=== PATIENT | female | born 1970 | race Caucasian/White ===

== ENCOUNTER 2019-06-28 17:47 | Emergency (ER) | payer BC, SELFPAY ==
--- NOTE | ~2019-06-28 | XR_ITS ---
EXAMINATION: XR abdomen/kub 1V EXAM DATE: 06/28/2019 20:28 INDICATION: Left UPJ 4 mm stone. TECHNIQUE: Frontal projection(s) of the abdomen for interpretation. Comparison is made to prior exami nation from 02/01/2010. FINDINGS: There is expected amount of colonic stool and gas. No small bowel dilation, nonobstructiv e bowel gas pattern. Can't identify the left UPJ stone seen on CT. There is no organomegaly suspec diamond. The bones are unremarkable. There is no free intraperitoneal air. The lung bases are clear. IMPRESSION: Cannot identify genitourinary calcification(s) seen on CT. Reviewed, dictated and finalized at location A.
--- NOTE | ~2019-06-28 | CT_ITS ---
EXAMINATION: CT abdomen pelvis wo con EXAM DATE: 06/28/2019 19:55 INDICATION: Left flank pain. TECHNIQUE: Spiral CT of the abdomen and pelvis was performed without contrast. Axial, coronal and sag ittal images were reviewed. The dose-length product (DLP) for this examination was 1366.73 mGy-cm. The exposure was tailored according to patient size (auto mA exposure control), and iterative reconst ruction (ASIR) was used as additional dose reduction technique. Comparison is made to prior examinati on from 10/27/2014. FINDINGS: There is a 4 mm stone in the left ureteropelvic junction, mild obstructive nephropathy. No other genitourinary calcifications. The uterus is unremarkable. The bladder is unremarkable. Ther e is a left adrenal gland adenoma measuring 1.3 cm unchanged. The right adrenal gland, spleen, pancre as are unremarkable. Hepatic steatosis present. Gallbladder is unremarkable. No biliary obstruction . There is no retroperitoneal or pelvic lymphadenopathy. The appendix is normal. The stomach and small bowel are unremarkable. There is expected amount of c olonic stool. No free intraperitoneal gas. The heart is normal in size. There are no pericardial or pleural effusions. The lung bases are unremarkable. There are no osteoblastic or osteolytic les ions identified. IMPRESSION: Left UPJ 4 mm stone, mild obstructive nephropathy. Urologist consultants would appreciate KUB as baseline for follow-up, treatment planning. Reviewed, dictated and finalized at location A. IMPRESSION: Left UPJ 4 mm stone, mild obstructive nephropathy. Urologist tracee tanjorge would appreciate KUB as baseline for follow-up, treatment planning.
[2019-06-28 18:19] VITALS: BP 155/99; PULSE 75; RESP 16; TEMP 36.3; O2SAT 96
[2019-06-28 18:30] LABS: Basophils Percent Auto 0.2 % (0.2-1.2); Eosinophils Absolute Auto 0.1 K/mm3 (0-0.3); Eosinophils Percent Auto 0.6 % (0-4.4); Hematocrit 42.9 % (37.0-47.0); Hemoglobin 13.9 g/dL (12.0-15.0); Immature Granulocyte Absolute 0.07 K/mm3 (0.00-0.031); Immature Granulocyte Percent A 0.4 % (0-0.5); Lymphocytes Absolute Auto 1.36 K/mm3 (0.9-3.2); Lymphocytes Percent Auto 8.4 % (18.3-44.2); Mean Corpuscular HGB Conc 32.4 g/dl (32-36); Mean Corpuscular Hemoglobin 28.5 pg (26-34); Mean Corpuscular Volume 88.1 fl (80-100); Mean Platelet Volume 10.2 fl (7.4-10.4); Monocytes Absolute Auto 1.1 K/mm3 (0.1-0.6); Monocytes Percent Auto 6.9 % (2.6-8.5); Neutrophils Absolute Auto 13.5 K/mm3 (1.3-6.7); Neutrophils Percent Auto 83.5 % (45.5-73.1); Platelet Count Result 318 k/mm3 (150-375); Red Blood Count 4.87 M/mm3 (4.2-5.4); Red Cell Distribution Width 14.2 % (11.5-14.5); White Blood Count 16.2 K/mm3 (4.5-10.0)
[2019-06-28 18:41] LABS: Blood Urea Nitrogen 16 mg/dL (7-17); Carbon Dioxide 26 mmol/L (22-30); Chloride 105 mmol/L (98-107); Estimated CRCL calculation 70 ml/min; Estimated Glomerular Filt Rate 53; Glucose 143 mg/dL (65-105); Potassium 3.8 mmol/L (3.4-5.0); Sodium 141 mmol/L (137-145)
[2019-06-28 18:56] LABS: Add Urine Microscopic? YES; Appearance Urine Cloudy (Clear); Bacteria Urine 2+ /hpf; Bilirubin Urine Negative (Negative); Blood Urine 3+ (Negative); Color Urine Yellow (Yellow); Glucose Urine UA Negative (Negative); Ketones Urine Negative (Negative); Leukocyte Esterase Ur Negative LEU/UL (Negative); Mucus Urine Rare /lpf; Nitrate Urine Negative (Negative); Protein Urine 2+ mg/dL (Negative); RBC Urine >75 /hpf (0-2); Specific Grav Ur 1.025 (1.001-1.035); Squamous Epithelial Cell Urine Many /hpf (Few); Urobilinogen Urine Negative mg/dL (<2.0)
[2019-06-28 19:19] VITALS: BP 168/95; PULSE 75; RESP 21; O2SAT 95
--- NOTE | 2019-06-28 19:25 | ED.BACK ---
HPI - Back Pain/Injury General Chief Complaint: Back Pain/Injury <Vania Stout PA-C - Last Filed: 06/28/19 21:26> Stated Complaint: L FLANK PAIN N/V <CARLITO Mejias Last Filed: 06/28/19 21:26> Time Seen by Provider: 06/28/19 19:19 <Vania Stout PA-C - Last Filed: 06/28/19 21:26> Source: patient <CARLITO Mejias Last Filed: 06/28/19 21:26> Mode of arrival: ambulatory <CARLITO Mejias Last Filed: 06/28/19 21:26> Limitations: no limitations <Vania Stout PA-C - Last Filed: 06/28/19 21:26> History of Present Illness HPI Narrative: This is a 48-year-old female that presents the emergency department for left flank pain since yesterday. Reports constant, sharp left flank pain. Associated with nausea and vomiting. Reports history of kidney stones. Denies fever, dysuria, hematuria. <Vania Stout PA-C - Last Filed: 06/28/19 21:26> Related Data Allergies/Adverse Reactions: Allergies Allergy/AdvReac Type Severity Reaction Status Date / Time No Known Allergies Allergy Verified 09/04/18 09:09 <Vania Stout PA-C - Last Filed: 06/28/19 21:26> Review of Systems Review of Systems: Narrative: CONSTITUTIONAL: Denies fever GASTROINTESTINAL: Reports abdominal pain, nausea, vomiting GENITOURINARY: Denies dysuria or hematuria. MUSCULOSKELETAL: Reports back pain <CARLITO Mejias Last Filed: 06/28/19 21:26> All systems reviewed & are unremarkable except as noted in HPI and below <Vania Stout PA-C - Last Filed: 06/28/19 21:26> PMFSH Past Medical History Medical History: Medical History (Updated 06/29/19 @ 00:00 by Background Daemon) History of anxiety History of hypertension History of migraine <CARLITO Mejias Last Filed: 03/10/20 21:26> Surgical History Surgical History: Surgical History (Updated 06/28/19 @ 19:30 by Vania Stout PA-C) History of appendectomy History of section History of tonsillectomy <Vania Stout PA-C - Last Filed: 06/28/19 21:26> Social History Social History: Social History Gender identity (if verbalized by the patient): Female <Vania Stout PA-C - Last Filed: 06/28/19 21:26> Exam Narrative: Exam Narrative: GENERAL: Well-appearing, obese, and in no acute distress. HEAD: Normocephalic, atraumatic. EYES: EOMI. CHEST: Clear to auscultation. No respiratory distress. No wheezes rales or rhonchi HEART: Regular rate and rhythm. No murmur heard. Normal peripheral pulses. ABDOMEN: Soft, nondistended, normal active bowel sounds. Mild tenderness to palpation of the LLQ, without guarding. Left sided CVA tenderness EXTREMITIES: Normal range of motion. No edema. SKIN: Warm, dry, no rash. NEURO: No focal deficits. Alert and oriented x3. PSYCH: Normal mood and affect <Vania Stout PA-C - Last Filed: 06/28/19 21:26> Course Vital Signs Vital signs: Vital Signs Temperature 36.3 C L 06/28/19 18:19 Pulse Rate 75 06/28/19 18:19 Respiratory Rate 16 06/28/19 18:19 Blood Pressure 155/99 H 06/28/19 18:19 Pulse Oximetry 96 06/28/19 18:19 Temperature 36.3 C L 06/28/19 18:19 Pulse Rate 78 06/28/19 20:45 Respiratory Rate 17 06/28/19 20:45 Blood Pressure 135/70 06/28/19 20:45 Pulse Oximetry 95 06/28/19 20:45 <Vania Stout PA-C - Last Filed: 06/28/19 21:26> Vital Signs Temperature 36.3 C L 06/28/19 18:19 Pulse Rate 75 06/28/19 18:19 Respiratory Rate 16 06/28/19 18:19 Blood Pressure 155/99 H 06/28/19 18:19 Pulse Oximetry 96 06/28/19 18:19 Temperature 36.3 C L 06/28/19 18:19 Pulse Rate 78 06/28/19 20:45 Respiratory Rate 17 06/28/19 20:45 Blood Pressure 135/70 06/28/19 20:45 Pulse Oximetry 95 06/28/19 20:45 <Candi Rivers MD - Last Filed: 06/29/19 00:46> MDM - Back Pain/Injury MDM Narrative Medical decision making narrative: Patient presents the emergency
[2019-06-28] MEDS: SODIUM CHLORIDE 0.9% IV 1,000 ML 999 ML IV CONT (19:40)
[2019-06-28] MEDS: ONDANSETRON INJ 4 MG/2 ML VIAL IV PUSH (19:40)
[2019-06-28] MEDS: MORPHINE SULFATE 4 MG/ML INJ IV PUSH (19:44)
[2019-06-28 20:45] VITALS: BP 135/70; PULSE 78; RESP 17; O2SAT 95
[2019-06-28] MEDS: KETOROLAC 30 MG/ML VIAL (*BKC) IV PUSH (21:00)
[2019-06-28] MEDS: PROMETHAZINE HCL 25 MG/ML AMPUL 12.5 MG IV PUSH (21:05)
== END 2019-06-28 21:55 | disposition home or self-care (01) ==
PROVIDERS: Emergency Provider Emergency Medicine; PCP Family Medicine
DX: N13.8 Other obstructive and reflux uropathy (principal); N20.1 Calculus of ureter; N39.0 Urinary tract infection, site not specified; I10 Essential (primary) hypertension; Z87.442 Personal history of urinary calculi
CPT/HCPCS: 36415; 74018; 74176; 80048; 81001; 81025; 85025; 87086; 96361; 96365; 96375; 99284; J0131; J0696; J1885; J2270; J2405; J2550; J7030

== ENCOUNTER 2019-06-30 10:51 | Day surgery (SDC) | payer BC, SELFPAY ==
[2019-06-30] VITALS (10 sets, daily range): BP systolic 100–186; BP diastolic 51–100; PULSE 68–81; RESP 14–21; TEMP 35.8–36.6; O2SAT 93–99
--- NOTE | ~2019-06-30 | XR_ITS ---
Pain management procedure TECHNIQUE: Fluoroscopy used during ureteral stone extraction performed by [Isaiah Sauceda MD ] on 06/30/2019. 13.7 seconds with 4 fluoroscopic images images captured. ] FINDINGS: Correlate with procedure note. IMPRESSION: Fluoroscopy used during ureteral stone extraction.. Reviewed, dictated and finalized at location A.
--- NOTE | ~2019-06-30 | XR_ITS ---
EXAMINATION: XR abdomen/kub 1V EXAM DATE: 06/30/2019 13:14 INDICATION: Left ureteral stone recheck. TECHNIQUE: Frontal projection of the upper abdomen, frontal projection lower abdomen/pelvis for inter pretation. There is no prior study for comparison. FINDINGS: Left UPJ stone likely identified, indicated. Nonobstructive bowel gas pattern. Mild bony d egenerative changes. IMPRESSION: Left UPJ stone likely identified. Reviewed, dictated and finalized at location B.
[2019-06-30] MEDS: HYDROMORPHONE HCL 1 MG/ML INJ 0.5 MG IV PUSH (12:39)
[2019-06-30] MEDS: SODIUM CHLORIDE 0.9% IV 1,000 ML 999 ML IV CONT (12:39)
[2019-06-30] MEDS: METOCLOPRAMIDE HCL INJ 10 MG/2 ML VIAL IV PUSH (12:39)
--- NOTE | 2019-06-30 13:09 | PC.NURSE ---
Patient in radiology at this time. Will request urine sample upon return to department.
--- NOTE | 2019-06-30 13:31 | ED.ABDPAIN ---
HPI - Abdominal Pain General Chief Complaint: Urogenital-Female Stated Complaint: flank pain/vomiting/kidney stone Time Seen by Provider: 06/30/19 11:20 Source: patient Mode of arrival: ambulatory Limitations: no limitations History of Present Illness HPI narrative: Patient presents with chief complaint of continued left groin pain over the past 2 days. Patient was seen here a few days ago and diagnosed with left UPJ stone. Patient reports she has been taking the Zofran and Gilchrist but has continued to have excruciating pain to the left groin accompanied with nausea and vomiting. Patient reports some epigastric tenderness due to persistent vomiting. Patient denies noting blood in her urine or seeing any passed stones. Patient denies any fevers or chills. Patient states that she was referred to a new urologist but does not have a standing urologist. Related Data Home Medications Medication Instructions Recorded Confirmed alprazolam mg PO 06/30/19 atenolol 06/30/19 diltiazem HCl PO 06/30/19 lamotrigine 06/30/19 quetiapine 06/30/19 sertraline mg 06/30/19 Allergies Allergy/AdvReac Type Severity Reaction Status Date / Time No Known Allergies Allergy Verified 06/30/19 11:18 Review of Systems Review of Systems: Narrative: CONSTITUTIONAL: Denies fever, chills, or sweats. EYES: Denies visual changes, redness, or discharge. ENT: Denies rhinorrhea, congestion, sore throat, or otalgia. CARDIOVASCULAR: Denies chest pain, palpitations, or edema. RESPIRATORY: Denies cough or dyspnea. GASTROINTESTINAL: Reports left groin pain, nausea, vomiting, denies diarrhea. GENITOURINARY: Denies dysuria or hematuria. SKIN: Denies rash or itching. MUSCULOSKELETAL: Denies back pain, joint pain, or myalgia. NEUROLOGIC: Denies headache, numbness, dizziness, or weakness. PSYCHIATRIC: Denies anxiety or depression. [facility] Past Medical History Medical History (Updated 06/30/19 @ 13:42 by Rosalee Vasquez PA-C) History of anxiety History of hypertension History of migraine Surgical History Surgical History (Updated 06/28/19 @ 19:30 by Vania Stout PA-C) History of appendectomy History of section History of tonsillectomy Social History Social History Gender identity (if verbalized by the patient): Female Exam Narrative: Exam Narrative: GENERAL: Well-appearing, well-nourished, and in no acute distress. HEAD: Normocephalic, atraumatic. EYES: PERRLA and EOMI. ENT: Nares clear, no rhinorrhea or epistaxis. Mucous membranes moist. Oropharynx without tonsillar hypertrophy exudate or other lesions. Bilateral TMs pearly martinez nonbulging CHEST: Clear to auscultation. No respiratory distress. No wheezes rales or rhonchi HEART: Regular rate and rhythm. No murmur heard. Normal peripheral pulses. ABDOMEN: Soft, no epigastric tenderness, nondistended, normal active bowel sounds. EXTREMITIES: Normal range of motion. No edema. SKIN: Warm, dry, no rash. NEURO: No focal deficits. Alert and oriented x3. PSYCH: Normal mood and affect. Course Vital Signs Vital signs: Vital Signs Temperature 97.9 F 06/30/19 11:11 Pulse Rate 81 06/30/19 11:11 Respiratory Rate 18 06/30/19 11:11 Blood Pressure 164/100 H 06/30/19 11:11 Pulse Oximetry 97 06/30/19 11:11 Temperature 96.4 F L 06/30/19 12:47 Pulse Rate 81 06/30/19 12:47 Respiratory Rate 14 06/30/19 12:47 Blood Pressure 186/97 H 06/30/19 12:47 Pulse Oximetry 93 06/30/19 12:47 MDM - Abdominal Pain MDM Narrative Medical decision making narrative: Consult with Dr. bustamante?urology regarding patient. He with KUB ordered. He states at patient's prior visit the stone may have been blocked by bowel gas but may be visible for repeat KUB. He states that the KUB is ordered he will further evaluate the patient. 1330:Patient evaluated by Dr Daigle in the ER he states he is taking patient to OR to remove stone. Imaging Data Radiologist's impression: I
--- NOTE | 2019-06-30 13:46 | PM.IMHP ---
H&P: HPI History of Present Illness Chief complaint: flank pain/vomiting/kidney stone Narrative: Radha You is a 48 year old female who reports having spontaneously passed multiple ureteral stones in the past. She is now in the ER for the 2nd time in 3 days with left flank pain nauseav/vomiting. She denies fevers chills gross hematuria or irritable voiding symptoms. Axial imaging with follow-up KUB shows a persistent 4 mm stone in her left proximal ureter. Review of Systems Constitutional: Constitutional: Denies chills, Denies fatigue, Denies fever(s) and Denies headache(s) Eyes: Eyes: Denies blurry vision ENT: Denies vertigo, Denies dizziness, Denies headache(s) and Denies sore throat Cardiovascular: Cardiovascular: Denies chest pain, Denies syncope, Denies lightheadedness, Denies palpitations, Denies dyspnea and Denies dyspnea on exertion Respiratory: Respiratory: Denies hemoptysis, Denies dyspnea and Denies dyspnea on exertion Gastrointestinal: Gastrointestinal: Denies melena, Denies bloating, Denies hematochezia, Denies change in bowel habits, Denies change in stool character, Denies constipation, Denies diarrhea and Denies vomiting Genitourinary: Genitourinary: Denies hematuria, Denies urinary frequency, Denies dysuria, Denies urinary hesitancy and Denies urinary urgency Integumentary/Breasts: Skin/Breast: Denies pruritus, Denies lesions and Denies rash Neurologic: Denies confusion, Denies vertigo, Denies dizziness, Denies syncope and Denies headache(s) Psychiatric: Psychiatric: Denies anxiety, Denies change in appetite and Denies confusion Endocrine: Endocrine: Denies fatigue and Denies palpitations PMFSH Past Medical History Medical History History of anxiety History of hypertension History of migraine Surgical History Surgical History History of appendectomy History of section History of tonsillectomy Social History Social History Gender identity (if verbalized by the patient): Female Meds Home Medications and Allergies Home Medications Medication Instructions Recorded Confirmed Type ciprofloxacin HCl 500 mg PO Q12H 5 Days #10 tablet 06/28/19 Rx hydrocodone-acetaminophen 1 tablet PO Q8H PRN #20 tablet 06/28/19 Rx promethazine 12.5 mg PO Q6H PRN #14 tablet 06/28/19 Rx tamsulosin [Flomax] 0.4 mg PO DAILY 7 Days #7 cap 06/28/19 Rx alprazolam mg PO 06/30/19 History atenolol 06/30/19 History diltiazem HCl PO 06/30/19 History lamotrigine 06/30/19 History quetiapine 06/30/19 History sertraline mg 06/30/19 History Allergies Allergy/AdvReac Type Severity Reaction Status Date / Time No Known Allergies Allergy Verified 06/30/19 11:18 Vital Signs Vital Signs - 24 hr 06/30/19 11:11 06/30/19 12:47 Temperature 97.9 F 96.4 F L Pulse Rate 81 81 Respiratory Rate 18 14 Blood Pressure 164/100 H 186/97 H Pulse Oximetry 97 93 Exam Const: General: healthy appearing, comfortable, no acute distress and well developed; No confusion Nutritional Appearance: well nourished Orientation/consciousness: patient oriented x3 and No confusion HENMT: Head: normocephalic and atraumatic Ears: external ears normal Face and sinus: normal facial exam Mouth: Yes lip normal Teeth and gingiva: dentition normal Eyes: General: appearance normal, both eyes and all related structures Alignment and Position: alignment normal Eyelids: eyelids normal Cornea: corneas normal Pupils: Equal, round and reactive pupils present EOM: EOMs intact bilaterally Neck: Neck: normal visual inspection, full ROM and no JVD Chest: Chest palpation & inspection: normal inspection of the chest Resp: Effort & Inspection: normal respiratory effort and no use of accessory muscles Auscultation: clear to auscultation bilaterally Cardio: Jugul
--- NOTE | 2019-06-30 14:26 | WPDANESEPPF ---
Anes - Initial Pre Proc Eval Procedure: Operation Date: 06/30/19 16:30 Proposed Procedures p CYSTOSCOPY,LEFT URETEROSCOPY,STONE EXTRACTION,POSSIBLE HOLMIUM LASER - Isaiah Sauceda MD Date/Time: 06/30/19 14:26 Surgeon: Isaiah Sauceda MD Pre Op Diagnosis: flank pain/vomiting/kidney stone Patient Data Age: 48 Gender: F Height: 5 ft 6 in Weight: 106.6 kg Last Vital Signs Temp 36.1 C L 06/30/19 14:09 Pulse 80 06/30/19 14:09 Resp 14 06/30/19 14:09 BP 121/59 L 06/30/19 14:09 Pulse Ox 98 06/30/19 14:09 Allergies Allergy/AdvReac Type Severity Reaction Status Date / Time No Known Allergies Allergy Verified 06/30/19 11:18 Home Medications Medication Instructions Recorded Confirmed Type ciprofloxacin HCl 500 mg PO Q12H 5 Days #10 tablet 06/28/19 Rx hydrocodone-acetaminophen 1 tablet PO Q8H PRN #20 tablet 06/28/19 Rx promethazine 12.5 mg PO Q6H PRN #14 tablet 06/28/19 Rx tamsulosin [Flomax] 0.4 mg PO DAILY 7 Days #7 cap 06/28/19 Rx alprazolam mg PO 06/30/19 History atenolol 06/30/19 History diltiazem HCl PO 06/30/19 History lamotrigine 06/30/19 History quetiapine 06/30/19 History sertraline mg 06/30/19 History Patient hx anesthesia problems: none Family hx anesthesia problems: none PMFSH Past Medical History Medical History History of anxiety History of hypertension History of migraine Surgical History Surgical History History of appendectomy History of section History of tonsillectomy Social History Social History Gender identity (if verbalized by the patient): Female Anes - Eval Final PreProcedure Day of Procedure 06/30/19 14:26 Patient weight: obese Heart: regular rate and rhythm Lungs: decreased breath sounds Airway: Mallampati scale class II Neurological: alert and oriented Last oral intake: >/= 8 hours ASA classification: III Emergent: no Anesthetic plan: proceed Anesthesia type and monitoring: general LMA and standard monitoring Informed Consent: The patient's anesthetic plan and its attendant risks and benefits were discussed with the patient/family/POA. Questions were solicited and answers provided to the satisfaction of the patient/family/POA.
[2019-06-30 14:36] LABS: Add Urine Microscopic? YES; Appearance Urine Clear (Clear); Bacteria Urine Trace /hpf; Bilirubin Urine Negative (Negative); Blood Urine 3+ (Negative); Color Urine Straw (Yellow); Glucose Urine UA Negative (Negative); Ketones Urine Negative (Negative); Leukocyte Esterase Ur Negative LEU/UL (Negative); Mucus Urine Rare /lpf; Nitrate Urine Negative (Negative); Protein Urine Negative (Negative); RBC Urine >75 /hpf (0-2); Specific Grav Ur 1.015 (1.001-1.035); Squamous Epithelial Cell Urine Occasional /hpf (Few); Urobilinogen Urine Negative mg/dL (<2.0); WBC Urine 0-3 /hpf
[2019-06-30] MEDS: ONDANSETRON INJ 4 MG/2 ML VIAL IV PUSH (14:40)
[2019-06-30] MEDS: ceFAZolin 2 GM/D5W 50 ML 2 GM/50 ML BAG IVPB (15:40)
[2019-06-30] MEDS: KETOROLAC 30 MG/ML VIAL (*BKC) IV PUSH (16:06)
[2019-06-30] MEDS: LACTATED RINGERS 1,000 ML 30 ML IV CONT (16:13)
--- NOTE | 2019-06-30 16:14 | PM.PROC ---
Procedure Note - Detailed Date of procedure: 06/30/19 Pre-op diagnosis: flank pain/vomiting/kidney stone Post-op diagnosis: same Procedure performed: Cystoscopy, left ureteroscopy with stone extraction. Description of procedure: The patient was brought to the operative suite where she is prepped and draped in a routine sterile fashion while in the dorsal lithotomy position after the uneventful induction of a general LMA anesthetic. A 19F rigid cystoscope was placed in the bladder. The patient had no evidence of urethral stricture or bladder neck contracture. The bladder mucosa was endoscopically normal without hyperemia or neoplasm. There was a single, orthotopic ureteral orifice bilaterally. A 0.035 glidewire was advanced into the left renal pelvis under fluoroscopy. The distal ureter was dilated with an 8F/10F ureteral dilator. Ureteroscopy was undertaken with a short, tapered, semi-rigid ureteroscope and the stone was extracted with ease using a 1.9F Escape disposable stone basket. Due to the ease of this manipulation I opted not to place a ureteral stent. The patient's bladder was emptied and was taken to the recovery room having tolerated this procedure well. Anesthesia: GLMA Surgeon: Isaiah Sauceda MD Estimated blood loss (mL): 0 Drains: No Packing: No Pathology: yes (Left ureteral stone) Complications: No immediate complications Condition: stable Disposition: PACU
--- NOTE | 2019-06-30 17:13 | SUR.PHASEI ---
1700; PT AWAKE AND ALERT. TALKATIVE. READY TO SEE FAMILY.
== END 2019-06-30 17:56 | disposition home or self-care (01) ==
LOC: ANHED 13:42 → ANHSURGERY 14:02
PROVIDERS: Physician Assistant; Emergency Provider Emergency Medicine; PCP Family Medicine; Visit Provider Urology
PROC: (CPT 52352; principal; 2019-06-30 16:30)
DX: N20.1 Calculus of ureter (principal); I10 Essential (primary) hypertension; F41.9 Anxiety disorder, unspecified; E66.9 Obesity, unspecified; Z68.38 Body mass index [BMI] 38.0-38.9, adult
CPT/HCPCS: 52352; 74018; 81001; 81025; 82365; 88300; 96361; 96374; 96375; 99285; C1769; J0690; J1100; J1170; J1885; J2250; J2405; J2704; J2765; J3010; J7030; J7120

== ENCOUNTER 2019-07-04 10:53 | Outpatient (CLI) | payer BC, SELFPAY ==
--- NOTE | ~2019-07-04 | CT_ITS ---
EXAMINATION: CT abdomen pelvis wo con DATE: 07/04/2019 11:15 INDICATION: Left-sided abdominal pain. Left renal stone removed. TECHNIQUE: Computed tomography (CT) of the abdomen and pelvis was performed without intravenous contr ast. Automated exposure control and iterative reconstruction technique were employed. Exam dose: 439 .78 mGy-cm total exam DLP. COMPARISON: 06/30/2019 KUB 06/28/2019 KUB 06/28/[address] abdomen pelvis FINDINGS: The lung bases are clear. Normal heart size. There is trace pericardial effusion. Hepatic steatosis. No hepatic space-occupying mass lesion is evident. The gallbladder is present. No bile duct or pancreatic duct dilatation or pancreatic mass lesion or calcification. The spleen is unr emarkable. The previously reported left ureteropelvic junction 4 mm stone noted on 06/28/[address] abdo men pelvis examination is no longer present, but there is persistent mild left nephromegaly and hydro ureteronephrosis and mild peripelvic and periureteral stranding. Clinical correlation is recommended to exclude any urinary tract infection. No other urinary tract calculus is evident. No right-sided hydronephrosis or hydroureter. The urinary bladder appears normal. Uterus and adnexal areas are unremarkable. IMPRESSION: Resolution of 4 mm stone previously noted at the left ureteropelvic junction since 2019; there is however persistent left nephromegaly and mild left hydroureteronephrosis and some brown pelvic and periureteral stranding; recommend clinical correlation exclude any possible infection Hepatic steatosis Trace pericardial effusion Reviewed, dictated and finalized at Location A. Reviewed, dictated and finalized at location B. IMPRESSION: Resolution of 4 mm stone previously noted at the left ureteropelvi c junction since 06/28/2019; there is however persistent left nephromegaly and m ild left hydroureteronephrosis and some peripelvic and periureteral stranding; recommend clinical correlation exclude any possible infection Hepatic steatosis Trace pericardial effusion
== END 2019-07-04 10:54 | disposition home or self-care (01) ==
LOC: ANHIMG 11:00
PROVIDERS: PCP Family Medicine; Visit Provider Urology
DX: N20.1 Calculus of ureter (principal); N28.81 Hypertrophy of kidney; N13.30 Unspecified hydronephrosis; K76.0 Fatty (change of) liver, not elsewhere classified; I31.3 Pericardial effusion (noninflammatory)
CPT/HCPCS: 74176

== ENCOUNTER → 2022-02-13 12:58 | Outpatient (CLI) | payer BC, SELFPAY ==
--- NOTE | ~2022-02-13 | MM_ITS ---
EXAMINATION: MM screening valerie BI w cassidy HISTORY: Screening mammogram, family history of breast cancer in her mother. TECHNIQUE: Craniocaudal and mediolateral oblique 3-D tomosynthesis images were obtained and synthetic 2-D images were generated. CAD analysis was submitted and interpreted. COMPARISON: No prior mammogram is available for comparison at this institution. BREAST PARENCHYMAL COMPOSITION: The breasts are heterogeneously dense, which may obscure small masses . FINDINGS: RIGHT BREAST: No suspicious mass, calcification, or architectural distortion are identified to sugges t malignancy. LEFT BREAST: An asymmetry is present in the far posterior third of the slightly outer breast 8 cm fro m the nipple on the craniocaudal view. IMPRESSION: 1. Left breast asymmetry on the craniocaudal view. 2. Additional mammographic views and possible breast ultrasound are recommended. BI-RADS Category 0: Incomplete: Needs additional imaging evaluation. Reviewed, dictated and finalized at location A. IMPRESSION: 1. Left breast asymmetry on the craniocaudal view. 2. Additional mammographic views and possible breast ultrasound are recommended . BI-RADS Category 0: Incomplete: Needs additional imaging evaluation.
== END ==
DX: Z12.31 Encounter for screening mammogram for malignant neoplasm of breast (principal); R92.8 Other abnormal and inconclusive findings on diagnostic imaging of breast
CPT/HCPCS: 77063; 77067

== ENCOUNTER 2022-05-08 16:09 | Emergency (ER) | payer BC, SELFPAY ==
[2022-05-08] VITALS (8 sets, daily range): BP systolic 140–152; BP diastolic 76–87; PULSE 74–84; RESP 15–20; TEMP 36.4; O2SAT 95–98
--- NOTE | ~2022-05-08 | CT_ITS ---
EXAMINATION: CTA chest PE abdomen pel DATE: 05/08/2022 21:16 INDICATION: Chest pain. Low abdominal pain. TECHNIQUE: Computed tomography angiography (CTA) of the chest was performed with 200 mL Omnipaque-350 intravenous contrast timed to evaluate the pulmonary arteries. Coronal maximum intensity projection 3D-reconstructions were created by the technologist. Computed tomography (CT) of the abdomen and pelv is was performed with intravenous contrast. Automated exposure control and iterative reconstruction t echnique were employed. The dose-length product was 2141.16 mGy-cm. COMPARISON: CT abdomen and pelvis 07/04/2019 FINDINGS: CTA chest: The lungs demonstrate mild atelectasis. No pleural effusion. The heart size is normal. No pericardial effusion. There is no pulmonary embolus. There is thoracic scoliosis and mild spondylosis . CT abdomen and pelvis: There is diffuse hepatic steatosis. The gallbladder is normal. There is chroni c mild splenomegaly, likely secondary to obesity. There is a 2.3 cm cyst in the spleen. The pancreas and adrenal glands are normal. There are 0cysts in the kidneys measuring up to 12 mm on the right. Th ere is diverticulosis of the colon without evidence of diverticulitis. There are no dilated loops of bowel. The appendix is not visualized. There is prominent fat in the inguinal canals that may be diane ias. There are no pathologically enlarged lymph nodes. There is no free intraperitoneal fluid. There is mild lumbar spondylosis. IMPRESSION: 1. No pulmonary embolus. 2. Diffuse hepatic steatosis. 3. Prominent fat in the inguinal canals that may be hernias. Reviewed, dictated and finalized at location A. CH OPERATOR
--- NOTE | ~2022-05-08 | XR_ITS ---
EXAMINATION: XR chest 2V DATE: 05/08/2022 16:32 INDICATION: Left-sided chest pain and shortness of breath TECHNIQUE: PA and lateral views of the chest were obtained. COMPARISON: Chest radiograph dated 02/07/2011 FINDINGS: The lungs remain clear with no focal airspace opacities, pulmonary edema, pleural effusion or pneumot horax. The cardiomediastinal silhouette is normal. Mild S-shaped scoliosis of the thoracolumbar spine . IMPRESSION: 1. No acute cardiopulmonary disease. Reviewed, dictated and finalized at location A. LLIGENCE AGENT
--- NOTE | 2022-05-08 16:11 | ECG_ITS ---
Measurements Intervals Murphy Rate: 75 P: 35 FL: 158 QRS: 46 QRSD: 100 T: 66 QT: 412 QTc: 460 Interpretive Statements SINUS RHYTHM MINIMAL Q WAVES- HIGH LATERAL LEADS BORDERLINE ST-T WAVE ABNORMALITY- HIGH LATERAL LEADS BORDERLINE ECG NO PREVIOUS ECG AVAILABLE FOR COMPARISON Electronically Signed On 05-08-2022 16:21:50 [employer] by Trey Posada D.O.
[2022-05-08 17:02] LABS: Basophils Percent Auto 0.3 % (0.2-1.2); Eosinophils Absolute Auto 0.2 K/mm3 (0-0.3); Eosinophils Percent Auto 2.9 % (0-4.4); Hematocrit 40.1 % (37.0-47.0); Immature Granulocyte Absolute 0.03 K/mm3 (0.00-0.031); Immature Granulocyte Percent A 0.4 % (0-0.5); Lymphocytes Absolute Auto 1.67 K/mm3 (0.9-3.2); Mean Corpuscular HGB Conc 32.4 g/dl (32-36); Mean Corpuscular Hemoglobin 29.5 pg (26-34); Mean Corpuscular Volume 90.9 fl (80-100); Mean Platelet Volume 10.4 fl (7.4-10.4); Monocytes Absolute Auto 0.6 K/mm3 (0.1-0.6); Monocytes Percent Auto 7.8 % (2.6-8.5); Neutrophils Absolute Auto 4.8 K/mm3 (1.3-6.7); Neutrophils Percent Auto 65.6 % (45.5-73.1); Platelet Count Result 219 k/mm3 (150-375); Red Blood Count 4.41 M/mm3 (4.2-5.4); Red Cell Distribution Width 14.3 % (11.5-14.5); White Blood Count 7.3 K/mm3 (4.5-10.0)
[2022-05-08 17:12] LABS: Alanine Aminotransferase 31 U/L (6-35); Alkaline Phosphatase 122 U/L (38-126); Anion Gap 5 mmol/L (8-16); Aspartate Amino Transferase 26 U/L (14-36); Bilirubin,Total 0.6 mg/dL (0.2-1.3); Blood Urea Nitrogen 11 mg/dL (7-17); Calcium 8.5 mg/dL (8.4-10.2); Carbon Dioxide 30 mmol/L (22-30); Chloride 106 mmol/L (98-107); Estimated CRCL calculation 121 ml/min; Estimated Glomerular Filt Rate > 60; Glucose 171 mg/dL (65-110); Lipase 74 U/L (23-300); Partial Thromboplastin Time 28.2 SECONDS (22.3-36.8); Potassium 3.8 mmol/L (3.4-5.0); Prothrombin Time 12.5 Seconds (11.1-14.7); Sodium 141 mmol/L (137-145)
[2022-05-08 17:38] LABS: Troponin I < 0.012 ng/mL (0.000-0.034)
--- NOTE | 2022-05-08 19:43 | ED.GENADULT ---
HPI - General Adult General Chief complaint: Chest Pain Stated complaint: chest pain, diarrhea, Time Seen by Provider: 05/08/22 19:35 History of Present Illness HPI narrative: Patient 51-year-old female presents the emergency department with chief complaint of chest pain headache diarrhea and abdominal discomfort. Patient reports that for several days she has been having a tightness in her chest that is worse with laying flat and worse with movement patient reports that she is also had a headache with this and also reports that she started having multiple bouts of diarrhea the patient denies vomiting states that she also has a uncomfortable feeling throughout her abdomen. Patient reports this is very similar to whenever she had COVID back in July Related Data Home Medications Medication Instructions Recorded Confirmed alprazolam 1 mg tablet,extended mg PO 06/30/19 release 24 hr atenolol 50 mg tablet 06/30/19 diltiazem HCl 180 mg PO 06/30/19 capsule,extended release 24 hr lamotrigine 200 mg tablet 06/30/19 quetiapine 200 mg tablet 06/30/19 sertraline 100 mg tablet mg 06/30/19 Allergies Allergy/AdvReac Type Severity Reaction Status Date / Time No Known Allergies Allergy Verified 06/30/19 15:14 Review of Systems Review of Systems: A 10 system review of systems was completed on the patient and is negative except for what is stated in the HPI. Nursing and ancillary documentation was reviewed. [facility] Past Medical History Medical History (Updated 05/08/22 @ 23:09 by Marlo Clancy MD) History of anxiety History of hypertension History of migraine Surgical History Surgical History History of appendectomy History of section History of tonsillectomy Social History Social History Gender identity (if verbalized by the patient): Female Exam Narrative: GENERAL: Well-appearing, well-nourished, and in no acute distress. HEAD: Normocephalic, atraumatic. EYES: PERRLA and EOMI. ENT: Nares clear, no rhinorrhea or epistaxis. Mucous membranes moist. NECK: Supple. CHEST: Clear to auscultation. No respiratory distress. Chest wall is tender to palpation HEART: Regular rate and rhythm. No murmur heard. Normal peripheral pulses. ABDOMEN: Soft, diffusely tender worse in the lower quadrants, nondistended, normal active bowel sounds. EXTREMITIES: Normal range of motion. No edema. SKIN: Warm, dry, no rash. NEURO: No focal deficits. Alert and oriented x3. PSYCH: Normal mood and affect. Course Vital Signs Vital signs: Vital Signs Temperature 36.4 C 05/08/22 16:16 Pulse Rate 74 05/08/22 16:16 Respiratory Rate 20 05/08/22 16:16 Blood Pressure 140/79 05/08/22 16:16 Pulse Oximetry 95 05/08/22 16:16 Oxygen Delivery Room Air 05/08/22 16:16 Temperature 36.4 C 05/08/22 16:16 Pulse Rate 74 05/08/22 21:33 Respiratory Rate 15 05/08/22 20:01 Blood Pressure 149/76 H 05/08/22 20:01 Pulse Oximetry 95 05/08/22 21:33 Oxygen Delivery Room Air 05/08/22 19:40 Medical Decision Making [facility] Narrative Medical decision making narrative: Differential diagnosis includes viral syndrome, ACS, intra-abdominal infection, chest wall pain EKG interpreted by mt sinus rhythm rate of [address] elevation or ST depression Initial troponin was negative. Chest x-ray showed no focal infiltrates Given the patient any prior history And also the diffuse tenderness to the abdomen a CTA chest was ordered to evaluate for possible pulmonary embolism also abdomen pelvis CT scan was ordered evaluate for possible intra-abdominal infection or abscess. CT scan showed no evidence of pulmonary embolism or evidence of acute intra-abdominal pathology. The patient's urine was somewhat dark but urinalysis showed no evidence of UTI Vital Signs Vital Signs:
[2022-05-08] MEDS: KETOROLAC 30 MG/ML VIAL (*BKC) IV PUSH (20:16)
[2022-05-08] MEDS: SODIUM CHLORIDE 0.9% IV 1,000 ML 999 ML IV CONT (20:17)
[2022-05-08 20:38] LABS: Troponin I < 0.012 ng/mL (0.000-0.034)
[2022-05-08 20:57] LABS: Influenza A QL RT-PCR Negative (Negative); Influenza B QL RT-PCR Negative (Negative); SARS-CoV-2 RNA PCR Negative
[2022-05-08 23:07] LABS: Appearance Urine Slightly Cloudy (Clear); Bilirubin Urine Negative (Negative); Blood Urine Negative (Negative); Color Urine Yellow (Yellow); Glucose Urine UA Negative (Negative); Ketones Urine Negative (Negative); Leukocyte Esterase Ur Negative LEU/UL (Negative); Nitrate Urine Negative (Negative); Protein Urine 1+ mg/dL (Negative); Specific Grav Ur >= 1.030 (1.001-1.035); Urobilinogen Urine 0.2 mg/dL (<2.0); pH Urine 5.5 (5.0-9.0)
[2022-05-08 23:09] LABS: Bacteria Urine 1+ /hpf; Calcium Oxalate Crystals Urine Present /hpf; Mucus Urine Moderate /lpf; RBC Urine 0-2 /hpf (0-2); Squamous Epithelial Cell Urine Few /hpf (Few)
[2022-05-08 23:12] LABS: Add Urine Microscopic? YES
== END 2022-05-08 23:36 | disposition home or self-care (01) ==
PROVIDERS: Emergency Medicine; Emergency Provider Emergency Medicine
DX: R07.89 Other chest pain (principal); R10.32 Left lower quadrant pain; R10.31 Right lower quadrant pain; Z20.822 Contact with and (suspected) exposure to COVID-19; I10 Essential (primary) hypertension; F41.9 Anxiety disorder, unspecified; Z86.16 Personal history of COVID-19
CPT/HCPCS: 36415; 71046; 71275; 74177; 80053; 81001; 81025; 83690; 84484; 85025; 85610; 85730; 87086; 87636; 93005; 96361; 96374; 99284; J1885; J7030; Q9967

== ENCOUNTER 2023-11-12 11:45 | Emergency (ER) | payer MEDICAID, SELFPAY ==
--- NOTE | 2023-11-12 11:51 | ED.GENADULT ---
HPI - General Adult General Chief complaint: Urogenital-Female Stated complaint: Ears Irritation/UTI Time Seen by Provider: 11/12/23 11:57 Source: patient, RN notes reviewed and old records reviewed Mode of arrival: ambulatory Limitations: no limitations History of Present Illness HPI narrative: 53-year-old female presents to the [facility] with complaints of ear discomfort and concerned for a UTI. Patient reports she has tubes. Symptoms for several days. Has left lower discomfort. Reports frequency, no burning with urination. Denies fevers, abdominal pain. No CVA tenderness. Denies URI symptoms. Denies drainage from her ears. Related Data Home Medications Medication Instructions Recorded Confirmed alprazolam 1 mg tablet,extended 1 mg PO DAILY 06/30/19 11/12/23 release 24 hr atenolol 50 mg tablet 50 mg PO DAILY 06/30/19 11/12/23 diltiazem HCl 180 mg 180 mg PO DAILY 06/30/19 11/12/23 capsule,extended release 24 hr lamotrigine 200 mg tablet 200 mg PO DIRECTED 06/30/19 11/12/23 quetiapine 200 mg tablet 200 mg PO DIRECTED 06/30/19 11/12/23 sertraline 100 mg tablet 100 mg PO DIRECTED 06/30/19 11/12/23 cabergoline 0.5 mg tablet 0.5 mg PO DIRECTED 11/12/23 11/12/23 Allergies Allergy/AdvReac Type Severity Reaction Status Date / Time No Known Allergies Allergy Verified 11/12/23 11:49 Review of Systems Review of Systems: All systems reviewed & are unremarkable except as noted in HPI and below Constitutional: Constitutional: Reports no additional constitutional complaints Eyes: Eyes: Reports no additional eye complaints ENT: Reports as per HPI and Reports otalgia Cardiovascular: Cardiovascular: Reports no additional cardiovascular complaints, Denies chest pain and Denies dyspnea Respiratory: Respiratory: Reports no additional respiratory complaints, Denies chest congestion, Denies cough and Denies dyspnea Gastrointestinal: Gastrointestinal: Reports no additional gastrointestinal complaints, Denies abdominal pain, Denies nausea and Denies vomiting Genitourinary: Genitourinary: Reports as per HPI Musculoskeletal: Musculoskeletal: Reports no additional musculoskeletal complaints Integumentary/Breasts: Skin/Breast: Reports system reviewed and no additional complaints, except as docu Neurologic: Reports system reviewed and no additional complaints, except as documented Psychiatric: Psychiatric: Reports no additional psychiatric complaints Allergic/Immunologic: Allergic/Immunologic: Reports no additional allergic/immunologic complaints PMF Past Medical History Medical History (Updated 11/13/23 @ 00:00 by Eduardo Baca) History of anxiety History of hypertension History of migraine Surgical History Surgical History History of appendectomy History of section History of tonsillectomy Social History Social History Gender identity (if verbalized by the patient): Female Comments At the time of my signature, I reviewed and agree with the nursing past medical, surgical, social, and family history. There is no relevant family history pertinent to the patient complaint. Exam Const: General: cooperative, healthy appearing, comfortable, no acute distress, well developed, alert and well nourished Nutritional Appearance: well nourished Orientation/consciousness: patient oriented x3 Limitations: no limitations HENMT: Head: normal to inspection Ears: hearing grossly normal bilaterally, external ears normal, Abnormal EAC present excessive cerumen; no erythema, no EA tenderness and no otic discharge and TM abnormal with myringotomy tube present bilateral Face/Nose/Sinus: Normal external nose present, Normal nares present, Normal nasal mucous membranes and turbinates present, No nasal discharge present, normal facial exam and face symmetric Face and sinus: normal facial exam and
[2023-11-12 11:56] VITALS: BP 144/81; PULSE 73; RESP 16; TEMP 36.6; O2SAT 98
[2023-11-12 12:05] LABS: EDUAAPPEAR Clear; EDUABILI Negative; EDUABLOOD Negative; EDUACOLOR1 Yellow; EDUAGLUCOSE Negative; EDUAKETONE Negative; EDUALEUKO Negative; EDUANITRATE Negative; EDUAPH 5.5; EDUAPROTEIN Negative; EDUASPGRAVITY 1.025; EDUAUROBILI 0.2
== END 2023-11-12 12:15 | disposition home or self-care (01) ==
PROVIDERS: Emergency Provider Nurse Practitioner
DX: R30.0 Dysuria (principal); H92.03 Otalgia, bilateral; F41.9 Anxiety disorder, unspecified; I10 Essential (primary) hypertension
CPT/HCPCS: 81003; 87086; 87088; 99213; G0463

== ENCOUNTER 2025-02-06 13:30 | Emergency (ER) | payer OTHER, SELFPAY ==
--- NOTE | ~2025-02-06 | CT_ITS ---
EXAMINATION: CT abdomen pelvis wo con DATE: 02/06/2025 15:48 INDICATION: Left flank pain and nephrolithiasis. TECHNIQUE: Computed tomography (CT) of the abdomen and pelvis was performed without intravenous contrast. Automated exposure control and iterative reconstruction technique were employed. The dose-length product was 524.55 mGy-cm. COMPARISON: 05/08/2022 FINDINGS: Lung bases are clear. Heart size is normal. No pericardial or pleural effusion. Mild diffuse hepatic steatosis. Unchanged 2.6 cm splenic cyst. Gallbladder, pancreas, right kidney and bilateral adrenal glands are normal. 5 mm nonobstructing stone at a lower pole calyx of the left kidney. 1 cm exophytic cyst at the upper pole the left kidney. Bowels are normal. The appendix is not visualized. No pericecal inflammatory change to suggest acute appendicitis. Bladder, uterus and bilateral adnexa are unremarkable. No pathologically enlarged abdominal or pelvic lymphadenopathy. Mild lumbar and lower thoracic spondylosis. IMPRESSION: 1. Nonobstructing 5 mm left renal stone. No other acute intra-abdominal/pelvic process. Reviewed, dictated and finalized at location A.
[2025-02-06 13:32] VITALS: BP 143/87; PULSE 74; RESP 18; TEMP 36.4; O2SAT 97
--- NOTE | 2025-02-06 15:15 | ED.ABDPAIN ---
HPI - Abdominal Pain General Chief Complaint: Abdominal Pain <Rand Pacheco PA-C - Last Filed: 02/06/25 15:22> Stated Complaint: bilat flank pain. DX with kidney stone <Rand Pacheco PA-C - Last Filed: 02/06/25 15:22> Time Seen by Provider: 02/06/25 15:15 <Rand Pacheco PA-C - Last Filed: 02/06/25 15:22> Focused HPI: Patient is a 54 y/o female who presents to the ED with c/o L sided abd pain. Patient reports she was diagnosed with a 4mm L sided kidney stone on Thursday via CT scan at [facility] urgent care. Hx stones. Does not currently see a urologist. Was discharged on flomax and hydrocodone, but reports pain is worsening. Not finding relief with hydrocodone. Reports ongoing nausea, denies vomiting since Thursday. Reports fever up to 101F yesterday. Reports pressure/pain with urination. GENERAL: Well-appearing, obese with BMI of 36.2, and in no acute distress. HEAD: Normocephalic, atraumatic. CHEST: Clear to auscultation. ?No respiratory distress. HEART: Regular rate and rhythm.? ABD: TTP in LLQ, no rebound, normoactive BS NEURO: ?Alert and oriented x3. Patient screened in triage and initial orders placed.? ?Additional care and disposition to be based upon?diagnostic testing and treatment. <Rand Pacheco PA-C - Last Filed: 02/06/25 15:22> Source: patient <Rand Pacheco PA-C - Last Filed: 02/06/25 15:22> Mode of arrival: ambulatory <CARLITO Murray Last Filed: 02/06/25 15:22> Limitations: no limitations <CARLITO Murray Last Filed: 02/06/25 15:22> History of Present Illness HPI narrative: Agree with HPI. Reports she was told at HS she was passing a stone. Has diffuse abdominal cramping and mild pinching around her urethra when she pees. <Lloyd Holliday MD - Last Filed: 02/06/25 17:47> Related Data Home Medications: Home Medications ?Medication ?Instructions ?Recorded ?Confirmed ?Last Taken ?Type alprazolam 1 mg tablet,extended 1 mg PO DAILY 06/30/19 11/12/23 Unknown History release 24 hr atenolol 50 mg tablet 50 mg PO DAILY 06/30/19 11/12/23 Unknown History diltiazem HCl 180 mg 180 mg PO DAILY 06/30/19 11/12/23 Unknown History capsule,extended release 24 hr lamotrigine 200 mg tablet 200 mg PO DIRECTED 06/30/19 11/12/23 Unknown History quetiapine 200 mg tablet 200 mg PO DIRECTED 06/30/19 11/12/23 Unknown History sertraline 100 mg tablet 100 mg PO DIRECTED 06/30/19 11/12/23 Unknown History cabergoline 0.5 mg tablet 0.5 mg PO DIRECTED 11/12/23 11/12/23 Unknown History <Rand Pacheco PA-C - Last Filed: 02/06/25 15:22> Allergies/Adverse Reactions: Allergies Allergy/AdvReac Type Severity Reaction Status Date / Time No Known Allergies Allergy Verified 02/06/25 15:28 <Rand Pacheco PA-C - Last Filed: 02/06/25 15:22> Review of Systems Review of Systems: All systems reviewed & are unremarkable except as noted in HPI and below <Lloyd Holliday MD - Last Filed: 02/06/25 17:47> Constitutional: Constitutional: Reports no additional constitutional complaints <Lloyd Holliday MD - Last Filed: 02/06/25 17:47> Cardiovascular: Cardiovascular: Reports no additional cardiovascular complaints <Lloyd Holliday MD - Last Filed: 02/06/25 17:47> Respiratory: Respiratory: Reports no additional respiratory complaints <Lloyd Holliday MD - Last Filed: 02/06/25 17:47> Gastrointestinal: Gastrointestinal: Reports no additional gastrointestinal complaints <Lloyd Holliday MD - Last Filed: 02/06/25 17:47> Genitourinary: Genitourinary: Reports no additional female genitourinary complaints <Lloyd Holliday MD - Last Filed: 02/06/25 17:47> [facility] Past Medical History Medical History: Medical History (Updated 02/06/25 @ 17:24 by Lloyd Holliday MD) History of migraine History of hypertension History of anxiety <Rand Pacheco PA-C - Last Filed: 02/06/25 15:22> Surgical History Surgical History: Surgical History History of section History of appendectomy History of tonsillectomy <Rand Pacheco PA-C - Last Filed: 02/06/25 15:22> Social History Social History: Social History Gender identity (if verbalized by the patient): Female <Rand Pacheco PA-C - Last Filed: 02/06/25 15:22> Exam Narrative: GENERAL: Well-appearing, obese, and in no acute distress. HEAD: Normocephalic, atraumatic. ENT: Mucous membranes moist. NECK: Supple. CHEST: Clear to auscultation. No respiratory distress. HEART: Regular rate and rhythm. Normal peripheral pulses. ABDOMEN: Soft, mild diffuse discomfort with palpation, nondistended. EXTREMITIES: Normal range of motion. No edema. SKIN: Warm, dry, no rash. NEURO: Alert and oriented x3. PSYCH: Normal mood and affect. <Lloyd Holliday MD - Last Filed: 02/06/25 17:47> Course Course Emergency Course: Blood work and imaging unremarkable for acute process. There is a stone in her left kidney but nothing that is traversing the urethra and should not be causing her any pain. She does have a mild UTI. She will be discharged home. <Lloyd Holliday MD - Last Filed: 02/06/25 17:47> Vital Signs Vital signs: Vital Signs Temperature 97.6 F 02/06/25 13:32 Pulse Rate 74 02/06/25 13:32 Respiratory Rate 18 02/06/25 13:32 Blood Pressure 143/87 H 02/06/25 13:32 Pulse Oximetry 97 02/06/25 13:32 Oxygen Delivery Room Air 02/06/25 13:32 Temperature 97.6 F 02/06/25 13:32 Pulse Rate 73 02/06/25 16:36 Respiratory Rate 20 02/06/25 16:36 Blood Pressure 163/89 H 02/06/25 16:36 Pulse Oximetry 95 02/06/25 16:36 Oxygen Delivery Room Air 02/06/25 16:36 <Rand Pacheco PA-C - Last Filed: 02/06/25 15:22> Vital Signs Temperature 97.6 F 02/06/25 13:32 Pulse Rate 74 02/06/25 13:32 Respiratory Rate 18 02/06/25 13:32 Blood Pressure 143/87 H 02/06/25 13:32 Pulse Oximetry 97 02/06/25 13:32 Oxygen Delivery Room Air 02/06/25 13:32 Temperature 97.6 F 02/06/25 13:32 Pulse Rate 73 02/06/25 16:36 Respiratory Rate 20 02/06/25 16:36 Blood Pressure 163/89 H 02/06/25 16:36 Pulse Oximetry 95 02/06/25 16:36 Oxygen Delivery Room Air 02/06/25 16:36 <Lloyd Holliday MD - Last Filed: 02/06/25 17:47> MDM - Abdominal Pain MDM Narrative Medical decision making narrative: MSE by LUAN in triage. <Rand Pacheco PA-C - Last Filed: 02/06/25 15:22> Lab Data Result diagrams: 02/06/25 15:32 02/06/25 15:32 <Rand Pacheco PA-C - Last Filed: 02/06/25 15:22> Labs: Lab Results 02/06/25 02/06/25 Range/Units 15:32 15:33 WBC 8.0 (4.5-10.0) K/mm3 RBC 4.39 (4.2-5.4) M/mm3 Hgb 13.0 (12.0-15.0) g/dL Hct 38.9 (37.0-47.0) % MCV 88.6 (80-100) fl MCH 29.6 (26-34) pg MCHC 33.4 (32-36) g/dl RDW 13.2 (11.5-14.5) % Plt Count 228 (150-375) k/mm3 MPV 11.0 H (7.4-10.4) fl Immature Gran % (Auto) 0.2 (0-0.5) % Neut % (Auto) 68.4 (45.5-73.1) % Lymph % (Auto) 21.3 (18.3-44.2) % [place] % (Auto) 7.8 (2.6-8.5) % Eos % (Auto) 2.1 (0-4.4) % Baso % (Auto) 0.2 (0.2-1.2) % Lymph # (Auto) 1.71 (0.9-3.2) K/mm3 [place] # (Auto) 0.6 (0.1-0.6) K/mm3 Eos # (Auto) 0.2 (0-0.3) K/mm3 Baso # (Auto) 0.0 (0.0-0.1) K/mm3 Abs Immat Gran (auto) 0.02 (0.00-0.031) K/mm3 Absolute Neuts (auto) 5.5 (1.3-6.7) K/mm3 Absolute Nucleated RBC 0.000 (0.0-0.012) K/mm3 Nucleated RBC % 0.0 (0.0-0.2) % Sodium 140 (137-145) mmol/L Potassium 4.1 (3.4-5.0) mmol/L Chloride 105 (98-107) mmol/L Carbon Dioxide 29 (22-30) mmol/L Anion Gap 6 (4-12) mmol/L BUN 16 (7-17) mg/dL Creatinine 0.82 (0.7-1.0) mg/dL Estim Creat Clear Calc 84 ml/min Estimated GFR > 60 (59 - ) Glucose 103 (65-110) mg/dL Lactic Acid 0.8 (0.7-2.0) mmol/L Calcium 8.9 (8.4-10.2) mg/dL Total Bilirubin 0.9 (0.2-1.3) mg/dL AST 27 (14-36) U/L ALT 25 (6-35) U/L Alkaline Phosphatase 92 (38-126) U/L Total Protein 7.3 (6.3-8.2) g/dL Albumin 4.2 (3.5-5.1) g/dL Urine Color Yellow (Yellow) Urine Appearance Cloudy H (Clear) Urine pH 5.5 (5.0-9.0) Ur Specific [place] 1.029 (1.001-1.035) Urine Protein Negative (Negative) mg/dL Urine Glucose (UA) Negative (Negative) mg/dL Urine Ketones Trace H (Negative) mg/dL Ur Blood (Man) Negative (Negative) Urine Nitrate Negative (Negative) Urine Bilirubin Negative (Negative) Urine Urobilinogen 0.2 (<2.0) mg/dL Add Ur Microanalysis Reviewed Leukocyte Esterase Rfl Negative (Negative) TARUN/UL Urine RBC 3-5 H (0-2) /hpf Urine WBC 6-10 H (0-3) /hpf Ur Squamous Epith Cells Few (Few) /hpf Urine Bacteria 2+ H /hpf Urine Casts 0-2 POC Urine HCG, Qual Negative (Negative) <Rand Pacheco PA-C - Last Filed: 02/06/25 15:22> Lab Results 02/06/25 02/06/25 Range/Units 15:32 15:33 WBC 8.0 (4.5-10.0) K/mm3 RBC 4.39 (4.2-5.4) M/mm3 Hgb 13.0 (12.0-15.0) g/dL Hct 38.9 (37.0-47.0) % MCV 88.6 (80-100) fl MCH 29.6 (26-34) pg MCHC 33.4 (32-36) g/dl RDW 13.2 (11.5-14.5) % Plt Count 228 (150-375) k/mm3 MPV 11.0 H (7.4-10.4) fl Immature Gran % (Auto) 0.2 (0-0.5) % Neut % (Auto) 68.4 (45.5-73.1) % Lymph % (Auto) 21.3 (18.3-44.2) % [place] % (Auto) 7.8 (2.6-8.5) % Eos % (Auto) 2.1 (0-4.4) % Baso % (Auto) 0.2 (0.2-1.2) % Lymph # (Auto) 1.71 (0.9-3.2) K/mm3 [place] # (Auto) 0.6 (0.1-0.6) K/mm3 Eos # (Auto) 0.2 (0-0.3) K/mm3 Baso # (Auto) 0.0 (0.0-0.1) K/mm3 Abs Immat Gran (auto) 0.02 (0.00-0.031) K/mm3 Absolute Neuts (auto) 5.5 (1.3-6.7) K/mm3 Absolute Nucleated RBC 0.000 (0.0-0.012) K/mm3 Nucleated RBC % 0.0 (0.0-0.2) % Sodium 140 (137-145) mmol/L Potassium 4.1 (3.4-5.0) mmol/L Chloride 105 (98-107) mmol/L Carbon Dioxide 29 (22-30) mmol/L Anion Gap 6 (4-12) mmol/L BUN 16 (7-17) mg/dL Creatinine 0.82 (0.7-1.0) mg/dL Estim Creat Clear Calc 84 ml/min Estimated GFR > 60 (59 - ) Glucose 103 (65-110) mg/dL Lactic Acid 0.8 (0.7-2.0) mmol/L Calcium 8.9 (8.4-10.2) mg/dL Total Bilirubin 0.9 (0.2-1.3) mg/dL AST 27 (14-36) U/L ALT 25 (6-35) U/L Alkaline Phosphatase 92 (38-126) U/L Total Protein 7.3 (6.3-8.2) g/dL Albumin 4.2 (3.5-5.1) g/dL Urine Color Yellow (Yellow) Urine Appearance Cloudy H (Clear) Urine pH 5.5 (5.0-9.0) Ur Specific [place] 1.029 (1.001-1.035) Urine Protein Negative (Negative) mg/dL Urine Glucose (UA) Negative (Negative) mg/dL Urine Ketones Trace H (Negative) mg/dL Ur Blood (Man) Negative (Negative) Urine Nitrate Negative (Negative) Urine Bilirubin Negative (Negative) Urine Urobilinogen 0.2 (<2.0) mg/dL Add Ur Microanalysis Reviewed Leukocyte Esterase Rfl Negative (Negative) TARUN/UL Urine RBC 3-5 H (0-2) /hpf Urine WBC 6-10 H (0-3) /hpf Ur Squamous Epith Cells Few (Few) /hpf Urine Bacteria 2+ H /hpf Urine Casts 0-2 POC Urine HCG, Qual Negative (Negative) <Lloyd Holliday MD - Last Filed: 02/06/25 17:47> Imaging Data Radiologist's impression: ITS Impressions Abdomen/Pelvis CT 02/06/25 15:51 IMPRESSION: 1. Nonobstructing 5 mm left renal stone. No other acute intra-abdominal/pelvic process. <Rand Pacheco PA-C - Last Filed: 02/06/25 15:22> ITS Impressions Abdomen/Pelvis CT 02/06/25 15:51 IMPRESSION: 1. Nonobstructing 5 mm left renal stone. No other acute intra-abdominal/pelvic process. <Lloyd Holliday MD - Last Filed: 02/06/25 17:47> Discharge Plan Discharge Clinical Impression: UTI (urinary tract infection) <Rand Pacheco PA-C - Last Filed: 02/06/25 15:22> Patient Disposition: Home <Rand Pacheco PA-C - Last Filed: 02/06/25 15:22> Condition: Stable <Rand Pacheco PA-C - Last Filed: 02/06/25 15:22> Instructions: Urinary Tract Infection in Women (ED) <Rand Pacheco PA-C - Last Filed: 02/06/25 15:22> Additional Instructions: You should return to the emergency department if you develop severe nausea and vomiting and are unable to keep liquids down, if you develop severe back/flank or stomach pain, or if your symptoms are not clearly improving at home. <Rand Pacheco PA-C - Last Filed: 02/06/25 15:22> Patient Language: Serbian <Rand Pacheco PA-C - Last Filed: 02/06/25 15:22> Prescriptions: New cephalexin 500 mg capsule 500 mg PO Q12H Qty: 14 0RF No Action cabergoline 0.5 mg tablet 0.5 mg PO DIRECTED lamotrigine 200 mg tablet 200 mg PO DIRECTED diltiazem HCl 180 mg capsule,extended release 24hr 180 mg PO DAILY sertraline 100 mg tablet 100 mg PO DIRECTED quetiapine 200 mg tablet 200 mg PO DIRECTED atenolol 50 mg tablet 50 mg PO DAILY alprazolam 1 mg tablet extended release 24 hr 1 mg PO DAILY <Rand Pacheco PA-C - Last Filed: 02/06/25 15:22> Follow-up/Referrals: PHYSICIAN NOT ON STAFF,NONSTAFF [Non-Staff] - 1 Week <Rand Pacheco PA-C - Last Filed: 02/06/25 15:22>
--- OUTSIDE RECORDS SUMMARY | 2025-02-06 15:25 | XMS_ITS | Encounter Summary ---
Author Organization 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 us Historical Provider Final Res ult documented in this encounter Visit Diagnoses Not on filedocumented in this encounter Care Teams Tube Sorter Relationship Specialty Start Date End Date Nai Dangelo MD [address] [facility] [place] [address] PCP - General 06/20/20 documented as of this encounter
--- OUTSIDE RECORDS SUMMARY | 2025-02-06 15:25 | XMS_ITS | Encounter Summary ---
Author Organization [facility] Address [address] [place] [address] Care Team Providers Care Content Development Specialist Name Role Phone Esequiel Shetty MD Primary Care Provider Unavaila ble Encounter Details Date Type Department Care Team (Late st Contact Info) Description 03/09/2020 Lab Requisition [facility] [address] 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 Gender Identity Not on file Sexual Orientation Not on file documented as of this encounter Plan of Treatment Not on file documented as of this encounter Procedures Procedure Name Priority Date/Time Associated Diagnosis Comments DERMATOPATHOLOGY Routine 03/08/2020 12:0 0 AM PRODUCT MARKETER documented in this encounter Results * DERMATOPATHOLOGY (03/08/2020 12:00 AM PRODUCT MARKETER) Case Report Dermatopathology Report Case: [id number] Authorizing Provider: Sallie June MD Collected: 03/08/2020 12:00 AM Ordering Location: [facility] Received: 03/09/2020 06:31 AM Pathologist: Darling Machado MD Specimen: Skin, left neck 0 1:10 PM PRODUCT MARKETER DERMATOPATHOLOGY LABORATORY Final Diagnosis Specimen A. SKIN, left neck: INTRADERMAL MELANOCYTIC NEVUS (D22.4) 0 1:10 PM PRODUCT MARKETER DERMATOPATHOLOGY LABORATORY at 1310 PRODUCT MARKETER Clinical History R/O nevus, irritated. 0 1:10 PM PRODUCT MARKETER DERMATOPATHOLOGY LABORATORY Gross Description Specimen A: Received is one formalin filled container labeled with the patient's name and designated left neck. The specimen consists of a shave measuring [id number], bisected. Jar 0. 0 1:10 PM PRODUCT MARKETER DERMATOPATHOLOGY LABORATORY Microscopic Description Specimen A. SKIN, left neck: There are nests of cytologically bland melanocytes within the dermis that mature with depth. 0 1:10 PM PRODUCT MARKETER DERMATOPATHOLOGY LABORATORY Disclaimer An external and internal positive and negative controls are appropriate for the histochemical, immunohistochemical and immunofluorescence stain(s) in this case (if any), except where stated explicitly. The performance characteristics of the stain(s) cited in this report were developed and its performance characteristic determined by the Dermatopathology Laboratory at [facility], directed by Dr. Laure Key. These tests need not be, and therefore are not, approved by the [place] Food and Drug Administration. The tests are used for clinical purposes. Billing Codes Specimen Charges Stain Charges 99914 1 0 1:10 PM PRODUCT MARKETER DERMATOPATHOLOGY LABORATORY Embedded Images 0 1:10 PM PRODUCT MARKETER DERMATOPATHOLOGY LABORATORY Pathology/Cytolog y TISSUE SPECIMEN FROM SKIN / Unknown 03/08/2020 03/09/2020 6:31 AM PRODUCT MARKETER Sallie June MD LAB - PATHOLOGY/CYTOLOGY OR DERABLES Final Result DERMATOPATHOLOGY LABORATORY [facility] - Department of Dermatology [facility] Medicine [address] [place] [address], [address] [place] [address], [facility] [phone] documented in this encounter Visit Diagnoses Not on filedocumented in this encounter Care Teams Content Development Specialist Relationship Specialty Start Date End Date Esequiel Shetty MD Suspended ILL License PCP - General 07/15/10 documented as of this encounter
--- OUTSIDE RECORDS SUMMARY | 2025-02-06 15:25 | XMS_ITS | Clinical Summary ---
Author Organization [facility] Address [address] [place] [address] Care Team Providers Care Head Of Digital Advertising & Integration Name Role Phone Esequiel Shetty MD Primary Care Provider Unavaila ble Source Comments [facility],non-owned Affiliates and Associated Physician Practices is amultiple site organization consisting of ambulatory clinics and hospital sitesin [place], [place], [place] and [place]. This disclosure is being madepursuant to the Care Everywhere program and may not contain all information available regarding this patient. Last updated 18.[facility] Isabella Oliver Active Problems Problem Noted Date Diagnosed Date Calculus of kidney 05/20/2011 Essential (primary) hypertension 05/20/2011 Other specified disorders of adrenal gland 05/20 Migraine without status migrainosus, not intract able 05/20/2011 Immunizations Immunization Administration Dates Next Due INFLUENZA VACCINE 01/16/2010 Family History Medical History Relation Name Comments High Cholesterol Father Hypertension Father CAD (Coronary Artery Disease) Mother Cancer Mother lung and breast Hypertension Mother Osteoporosis Mother Asthma Neg Hx CVA Neg Hx Diabetes Neg Hx Kidney Disease Neg Hx Migraine Neg Hx Thyroid Disease Neg Hx Relation Name Status Comments Father Mother Social History Tobacco Use Types Packs/Day Years Used Date Smoking Tobacco: Never Assessed Alcohol Use Standard Drinks/Week Comments No 0 (1 standard drink = 0.6 oz pur e alcohol) Comments Unknown Sex and Gender Information Value Date Recorded Sex Assigned at Not on file 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 Gender Identity Not on file Sexual Orientation Not on file Plan of Treatment Health Maintenance Due Date Last Done Comments COLOGUARD (AGES 45-75) - COL ON CA SCREENING 1972 COLON MONITORING 1972 COLONOSCOPY - COLON CA SCREENING 1972 CT COLONOGRAPHY - COLON CA SCREENING 1972 Colorectal Cancer Screening 1972 FIT - COLON CA SCREENING 1972 FLEX SIG - COLON CA SCREENING 1972 MAMMOGRAM 1972 HIV SCREENING 08/01/1987 HEPATITIS C SCREENING 07/27/1990 DTAP/TDAP/TD VACCINES (1 - Tdap) 08/01/1991 HEPATITIS B VACCINE (1 of 3 - 19+ 3-dose series) 08/01/1991 PAP SMEAR 1993 PNEUMOCOCCAL VACCINE 50+ (1 of 1 - PCV) 2022 ZOSTER VACCINE (1 of 2) 2022 DEPRESSION SCREENING 04/20/2024 LIPID TESTING 05/26/2024 05/26/2019 COVID-19 VACCINE (1 - 2023-2 5 season) 2024 INFLUENZA VACCINE (#1) 2024 01/16/2010 HIB VACCINE Aged Out No longer eligi ble based on patient's age to complete this topic HPV VACCINE Aged Out No longer eligi ble based on patient's age to complete this topic MENINGOCOCCAL (Group B) VACC INE SHARED DECISION-MAKING Aged Out No longer eligibl e based on patient's age to complete this topic MENINGOCOCCAL GROUPS A/C/Y/W VACCINE Aged Out No longer eligible b ased on patient's age to complete this topic Insurance ANTH Care Teams Head Of Digital Advertising & Integration Relationship Specialty Start Date End Date Esequiel Shetty MD Suspended ILL License PCP - General 07/15/10
--- OUTSIDE RECORDS SUMMARY | 2025-02-06 15:25 | XMS_ITS | Patient Health Record ---
Author Organization [facility] [employer] [facility] Address [address] [facility] [[email or web address] [address] [place] [address] Care Team Providers Care Fruit Picker Name Role Phone Magaly Morrison Unavailable [phone] Reason For Referral No Information Medications Medication SIG (Take, Route, Frequency, Duration) Notes Start Date End Date Status ALPRAZolam ER 2 MG Tablet Extended Release 24 Hour 1 tablet Orally Once a day; Duration: 30 days PLEASE FILL FABIOLA; CANCEL PREVIOUS SCRIPTS 11/30/2023 Active Fluticasone Propionate Diskus 50 MCG/ACT Aerosol Powder Breath Activated Inhalation *Reorder from Predictry for eRx and Interaction Alerts* 07/07/2023 Active metFORMIN HCl ER 500 MG Tablet Extended Release 24 Hour Oral 07/07/2023 Active Ondansetron 4 MG Tablet Disintegrating Oral 07/07/2023 Active Ergocalciferol 1.25 MG (59345 UT) Capsule Oral 07/07/2023 Active Cabergoline 0.5 MG Tablet Oral 07/07/2023 Active QUEtiapine Fumarate 100 MG Tablet TAKE 1 TABLET BY MOUTH DAILY AT BEDTIME; Duration: 90 Active DILTIAZEM 24HR ER 180 mg Capsule Extended Release 24 Hour Oral *Reorder from Predictry for eRx and Interaction Alerts* 07/07/2023 Active ALPRAZolam ER 0.5 mg Tablet Extended Release 24 Hour Oral 07/07/2023 Active ALPRAZolam ER 2 MG Tablet Extended Release 24 Hour 1 tablet Orally Once a day; Duration: 30 days 11/27/2023 Active Sertraline HCl 100 MG Tablet TAKE 1 TABLET BY MOUTH DAILY; Duration: 90 Active lamoTRIgine 100 MG Tablet TAKE 1 TABLET BY MOUTH DAILY; Duration: 90 Active Atenolol 50 MG Tablet Oral 07/07/2023 Active Social History Sex Assigned At : Social History Observation Description Sex Assigned At Female Social History Additional Details Category Social Info Options Details Migrated Social History Migrated Social History Alcohol Intake: None 08/13/2022,Tobacco Years: Never smoker 08/13/2022 Problems Problem Type SNOMED Code ICD Code Onset Dates Problem Status W/U Status Risk Notes Problem Panic disorder (865448012) Panic disorder [episodic paroxysmal anxiety] (F41.0) Active confirmed Plan Of Treatment No Information Insurance Providers Payer Name Payer Address Payer Phone Subscriber Number Group Number Insured Name Patient Relationship to Insured Coverage Start Date Coverage End Date [employer] [address] [place] [address] [id number] ABELARDO MCDANIELS Self - patient is the insured Medical (General) History Surgical History Surgery Date(Month/Year) Tonsilectomy/adenoids 1978 Sinus surgery 08/22/1997 Any surgical history 12/31/1994
--- OUTSIDE RECORDS SUMMARY | 2025-02-06 15:25 | XMS_ITS | Clinical Summary ---
Author Organization [facility] Address [address] [place] [phone] Care Team Providers Care Life Science Taxonomist Name Role Phone Nai Dangelo MD Primary Care Provider Allergies No known active allergies Medications ALPRAZolam (XANAX XR) 1 mg Extended Release 24 hour tablet Take 1 mg by mouth 2 times daily. 2 12/09/2017 Active lamoTRIgine (LaMICtal) 200 mg tablet Take 200 mg by mouth daily at bedtime. 2 12/27/2017 Active QUEtiapine (SEROquel) 200 mg tablet Take 200 mg by mouth daily at bedtime. 2 12/27/2017 Active atenolol (TENORMIN) 50 mg tablet Take 50 mg by mouth daily. 3 12/23/2017 Active sertraline (ZOLOFT) 100 mg tablet Take 200 mg by mouth daily at bedtime. 0 11/08/2017 Active diltiaZEM (CARDIZEM CD) 180 mg Controlled Delivery 24 hour capsule Take 180 mg by mouth daily. 1 12/23/2017 Active Active Problems No known active problems Family History Medical History Relation Name Comments Hypertension Brother Heart Disease Father Hypertension Father Stroke Father Cancer Mother breast cancer Hypertension Mother Stroke Mother Relation Name Status Comments Brother Alive Father Alive Mother (Age 58) Breast Can cer Sister Alive Social History Tobacco Use Types Packs/Day Years Used Date Smoking Tobacco: Never Smokeless Tobacco: Never Alcohol Use Standard Drinks/Week Comments No 0 (1 standard drink = 0.6 oz pur e alcohol) Comments Unknown Sex and Gender Information Value Date Recorded Sex Assigned at Not on file Legal Sex Female 1:12 PM CDT Gender Identity Not on file Sexual Orientation Not on file 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 Not on file Not on file Last Filed Vital Signs Vital Sign Reading Time Taken Comments Blood Pressure 102/72 01/07/2018 1:08 PM CDT Pulse 75 01/07/2018 1:08 PM CDT Temperature - - Respiratory Rate - - Oxygen Saturation - - Inhaled Oxygen Concentration - - Weight 102.2 kg (225 lb 3.2 oz) 01/07/2018 1:08 PM CDT Height 167.6 cm (5' 6) 01/07/2018 1:08 PM CDT Body Mass Index 36.35 01/07/2018 1:08 PM CDT Plan of Treatment Health Maintenance Due Date Last Done Comments DTAP/TDAP/TD VACCINES (1 - Tdap) 08/01/1991 HEPATITIS B VACCINES (1 of 3 - 19+ 3-dose series) 07/19 HPV/Cotest (21-29) 1993 CERVICAL CANCER SCREENING 2002 HPV/Cotest (30-65) 2002 PAP SMEAR 2002 BREAST CANCER SCREENING 2012 COLORECTAL SCREENING 2017 Colorectal Cancer Screening 2017 FIT-DNA Q 3 years 2017 FIT/FOBT Q 1 year 2017 Flex Sig/CT Colonography Q 5 years 2017 ZOSTER VACCINE (1 of 2) 2022 INFLUENZA VACCINE (#1) 2024 Insurance BS BLUE ACCESS/TRUE BLUE PPO Care Teams Life Science Taxonomist Relationship Specialty Start Date End Date Nai Dangelo MD [address] [place] [phone] PCP - General Family Practice 01/12/18
--- OUTSIDE RECORDS SUMMARY | 2025-02-06 15:25 | XMS_ITS | Clinical Summary ---
Author Organization [facility] C Address [address] [place] [address] Care Team Providers Care Transformer Assembler Name Role Phone Nai Dangelo MD Primary Care Provider Allergies Active Allergy Reactions Criticality Noted Date Comments Gluten Stomach upset Low 08/04/2013 Medications dilTIAZem CD 180 mg 24 hr capsule Take 1 capsule (180 mg total) by mouth every morning 3 Active atenoloL (TENORMIN) 50 mg tablet Take 1 tablet (50 mg total) by mouth every morning 3 Active lamoTRIgine (LaMICtal) 200 mg tablet Take 1 tablet (200 mg total) by mouth every morning 3 Active sertraline (ZOLOFT) 100 mg tablet Take 1 tablet (100 mg total) by mouth every morning 3 Active metFORMIN XR (GLUCOPHAGE XR) 500 mg 24 hr tabletIndication s:Type 2 diabetes mellitus with other circulatory complication, without long-term current use of insulin Take 1 tablet (500 mg total) by mouth daily with breakfast 90 tablet 3 4 Active atorvastatin (LIPITOR) 10 mg tablet Take 1 tablet (10 mg total) by mouth every morning Active cabergoline (DOSTINEX) 0.5 mg tablet Take 0.5 tablets (0.25 mg total) by mouth 2 (two) times a week Active Active Problems Problem Noted Date Diagnosed Date Dysfunction of both eustachian tubes 01/21/2024 Hyperlipidemia associated with type 2 diabetes lucia campos 12/14/2023 Assessment & Plan (12/14/2023 11:59 AM CDT): Will start atorvastatin 10 mg HS. Potential side effects including but not limited to myalgias discussed LDL goal less than 150. Low cholesterol diet Labs in 6 months Disorder of both eustachian tubes 02/13/2023 Chronic otitis media with effusion, bilateral Bilateral hearing loss 02/13/2023 Hypertrophy of nasal turbinates 02/13/2023 Type 2 diabetes mellitus wit h circulatory disorder, without long-term current use of insulin 09/24/2022 Assessment & Plan (12/14/2023 12:00 PM CDT): Lab Results Component Value Date HGBA1C 5.7 (H) 12/10/2023 Chronic, stable. Continue metformin XR 500 mg daily Consistent carb diet and exercise. Annual dilated eye exam. Assessment & Plan (06/15/2023 9:06 AM AVIONICS SYSTEMS TECHNICIAN): Lab Results Component Value Date HGBA1C 5.4 06/10/2023 Chronic, stable Continue metformin 500 mg with dinner Continue consistent carb diet and exercise Lipid panel. Will discuss statins next visit. Annual dilated eye exam. Assessment & Plan (01/27/2023 12:31 PM CDT): Hemoglobin A1c has improved from 7.5% to 5.8%. Continue metformin XR 500 mg with dinner Continue consistent carb diet and exercise Assessment & Plan (09/24/2022 8:46 PM CDT): Chronic, uncontrolled, hemoglobin A1c 7.5%, goal less than 7.0%. Continue metformin XR 500 mg with dinner Continue consistent carb diet and exercise Annual dilated eye exam Vitamin D deficiency 09/24/2022 Assessment & Plan (09/24/2022 8:48 PM CDT): Continue ergocalciferol 27703 units weekly. 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 Follow- up MRI April 2023 showed decrease in size of the macroadenoma measuring 1.7 cm. Evaluation for Bertha's syndrome and acromegaly was negative. Continue cabergoline. Will repeat imaging in 6 months. Assessment & Plan (06/15/2023 9:05 AM AVIONICS SYSTEMS TECHNICIAN): 52 years old female seen in follow-up for macroprolactinoma. Follow-up MRI in April 2023 showed decrease in height of the tumor from 2.2 cm to 1.7 cm. Continue cabergoline. Advised to follow with Ophthalmology for visual field assessment. Will repeat imaging in April 2024, sooner if symptoms change.. Assessment & Plan (01/27/2023 12:30 PM CDT): Workup for Nathalie's syndrome or acromegaly was negative. Continue cabergoline. Will repeat pituitary MRI. 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 Workup for Nathalie's syndrome or acromegaly is negative. Will repeat pituitary MRI in 4 months. Assessment & Plan (08/20/2022 10:00 PM CDT): 52 years old female seen for evaluation of pituitary macroadenoma and hyperprolactinemia. Pituitary MRI showed a 1.2 x 2.3 x 1.6 cm pituitary adenoma which expands the sella and slightly invasive the posterior sphenoid sinus. Hormonal evaluation showed elevated prolactin of 474, normal TFTs, ACTH and cortisol. 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 Treatment options discussed. Will start cabergoline 0.25 mg twice a week.. Titrate to 0.5 mg twice a week in 1 month if tolerating. Potential side effects including but not limited to nausea, vomiting and orthostatic hypotension discussed. Risk of CSF rhinorrhea due to rapid tumor shrinkage discussed. Will obtain 1 mg DST to rule out Bertha's syndrome.. Will repeat pituitary MRI in 6 months. All her questions were addressed. Follow-up in 2 months. Hyperprolactinemia 08/20/2022 Assessment & Plan (12/14/2023 11:59 AM CDT): Secondary to pituitary macroadenoma. Prolactin has normalized. Continue cabergoline 0.5 mg twice a week. Labs in 6 months Assessment & Plan (06/15/2023 9:05 AM AVIONICS SYSTEMS TECHNICIAN): Prolactin has normalized Continue cabergoline 0.5 mg twice a week Labs in 3 months. Plan to decrease prolactin from 1 mg to 0.75 mg per week if prolactin is stable Assessment & Plan (01/27/2023 12:30 PM CDT): Secondary to pituitary macroprolactinoma. Prolactin is trending down Continue cabergoline 0.5 mg twice a week Prolactin level in 3 months. Follow-up in 3-4 months Assessment & Plan (09/24/2022 8:47 PM CDT): Secondary to pituitary macroadenoma. Prolactin has normalized Continue cabergoline 0.25 mg twice a week Will repeat prolactin level in 2 months. Follow-up in 4 months Assessment & Plan (08/20/2022 10:01 PM CDT): Secondary to macroprolactin Cabergoline as above. Repeat prolactin level in 1 month. Hypercalcemia 08/20/2022 Assessment & Plan (08/20/2022 9:46 PM CDT): Calcium 10.6 in June 2020. History of kidney stones. Evaluation for hyperparathyroidism. Class 2 obesity without seri ous comorbidity with body mass index (BMI) of 35.0 to 35.9 in adult 08/20/2022 Assessment & Plan (12/14/2023 12:02 PM CDT): Counseled on healthy diet and regular physical activity Assessment & Plan (01/27/2023 12:32 PM CDT): Continue consistent carb diet and exercise. Continue metformin Assessment & Plan (09/24/2022 8:45 PM CDT): Counseled on healthy diet and regular physical activity Assessment & Plan (08/20/2022 9:46 PM CDT): Counseled on healthy diet and regular physical activity Evaluation for Nathalie's syndrome Primary hypertension 08/20/2022 Assessment & Plan (06/15/2023 9:06 AM AVIONICS SYSTEMS TECHNICIAN): Chronic, stable Continue diltiazem and atenolol Low-salt diet Assessment & Plan (01/27/2023 12:31 PM CDT): Chronic, stable. Continue Cardizem and atenolol. Low-salt diet Assessment & Plan (09/24/2022 8:45 PM CDT): Chronic, stable Continue atenolol and Cardizem Low-salt diet. Assessment & Plan (08/20/2022 9:46 PM CDT): Chronic, stable Continue diltiazem and atenolol Low-salt diet Amenorrhea 08/20/2022 Assessment & Plan (01/27/2023 12:31 PM CDT): Secondary to hyperprolactinemia. Advised periods may return once prolactin normalized. Will check labs in 3 months Assessment & Plan (08/20/2022 9:49 PM CDT): Suppressed LH and FSH due to hyperprolactinemia. Discussed possibility that she may have regular periods once prolactin normalize. Resolved Problems Problem Noted Date Diagnosed Date Resolved Date Morbid (severe) obesity due to excess calories 01/27/2023 01/27/2023 Surgical History Surgery Date Site/Laterality Comments BREAST BIOPSY 07/27/2015 Right SECTION FRACTURE SURGERY right ankle CYSTOSCOPY SINUS SURGERY BLADDER SURGERY Medical History Medical History Date Comments Arthritis Migraines Hypertension Kidney stone Disorder of both eustachian tubes Obesity BMI 36 DM (diabetes mellitus) Pituitary macroadenoma (HCC) Anxiety and depression HLD (hyperlipidemia) Family History Medical History Relation Name Comments Hearing loss Father Orion Aguilar Obesity Sister Kenny Mental illness Son Jorge A Obesity Son Jorge A Relation Name Status Comments Father Orion Ramirezglen Sister Kenny Son Jorge A Social History Tobacco Use Types Packs/Day Years Used Date Smoking Tobacco: Never Smokeless Tobacco: Never Tobacco Cessation:Counseling Given: Not Answered AUDIT-C Answer Date Recorded Q1: How often do you have a drink containing alcohol? Never 02/03/2024 Q2: How many drinks containi ng alcohol do you have on a typical day when you are drinking? Patient does not drink Q3: How often do you have si x or more drinks on one occasion? Never 02/03/2024 PHQ-2 Answer Date Recorded PHQ-2 Total Score (If total score is 3 or more points, staff should administer the PHQ-9) 0 12/14/2023 Personal Safety Answer Date Recorded Have you ever been in or are you currently in a harmful physical or emotional relationship or is someone making you feel afraid or unsafe? Denies 02/12/2024 Comments No Sex and Gender Information Value Date Recorded Sex Assigned at Not on file Legal Sex Female 1:18 AM AVIONICS SYSTEMS TECHNICIAN Gender Identity Not on file Sexual Orientation Not on file Obstetrics History Last Filed Vital Signs Vital Sign Reading Time Taken Comments Blood Pressure 113/70 02/12/2024 9:25 AM CDT Pulse 55 02/12/2024 9:26 AM CDT Temperature 36.9 C (98.5 F) 02/12/2024 8:50 AM CDT Respiratory Rate 20 02/12/2024 9:26 AM CDT Oxygen Saturation 92% 02/12/2024 9:26 AM CDT Inhaled Oxygen Concentration - - Weight 105.7 kg (233 lb) 02/25/2024 11:07 AM AVIONICS SYSTEMS TECHNICIAN Height 167.6 cm (5' 6) 02/25/2024 11:07 AM AVIONICS SYSTEMS TECHNICIAN Body Mass Index 37.61 02/25/2024 11:07 AM AVIONICS SYSTEMS TECHNICIAN Plan of Treatment Health Maintenance Due Date Last Done Comments Cervical Cancer Screening 1972 Colon Cancer Screening-Colonoscopy 1972 Hepatitis C Screening 1972 Dilated Eye Exam 1972 Foot Exam 1972 DTaP/Tdap/Td Vaccine (1 - Tdap) 08/01/1983 Hepatitis B Screening 1990 Regular Well Visit/Exam 18-64 1990 Pneumococcal vaccine <65 (1 of 2 - PCV) 08/01/1991 Breast Cancer Screening-Mammogram 06/27/2016 016 Zoster Vaccine (1 of 2) 2022 Hemoglobin A1C 06/11/2024 12/10/2023, 02/04/2023, 03/24/2023, Additional history exists Albumin Creatinine Ratio, Urine 06/15/2024 Lipid Panel 12/09/2024 12/10/2023, 07/12/2020 Depression Screening 12/13/2024 12/14/2023, 06/15/2023, 01/27/2023, Additional history exists Covid-19 Vaccine (2024- 6 season) 2024 08/07/2020, 07/17/2020 Influenza Vaccine (#1) 2024 01/16/2010, 2007 eGFR 02/02/2025 02/03/2024, 12/08/2022, 11/19/2022, Additional history exists Medical Devices Implanted Type Area Acoustic Engineer Device Identifier Shelf Expiration Date Model / Serial / Lot [employer] 1.32mm 4.8mm Modify Ear T Tube Ventilation Ultrasil Sterile Blue [id number] - [id number] Implanted:Qty: 1 on 02/12/2024 by Santiago Camacho MD at [facility] Left: Ear [employer] 12/09/2032 [id number] / / [id number] [employer] 1.32mm 4.8mm Modify Ear T Tube Ventilation Ultrasil Sterile Blue [id number] - [id number] Implanted:Qty: 1 on 02/12/2024 by Santiago Camacho MD at [facility] Right: Ear [employer] 12/09/2032 [id number] / / [id number] Procedures Procedure Name Priority Date/Time Associated Diagnosis Comments EGFR Routine 02/03/2024 9:07 AM CDT Preop testing HEMOGLOBIN A1C Routine 12/10/2023 2:06 PM CDT Type 2 diabetes mellitus with other circulatory complication, without long-term current use of insulin (HCC) LIPID PANEL Routine 12/10/2023 2:06 PM CDT Type 2 diabetes mellitus with other circulatory complication, without long-term current use of insulin (HCC) ALBUMIN CREATININE RATIO, URINE Routine 06/15/2023 9:19 AM AVIONICS SYSTEMS TECHNICIAN Type 2 diabetes mellitus with other circulatory complication, without long-term current use of insulin (HCC) DIAGNOSTIC MAMMOGRAM BILATERAL W MATTHEW Routine 06/28/2015 9:12 AM AVIONICS SYSTEMS TECHNICIAN from Last 3 Months or Most Recently Relevant to Health Maintenance Results * eGFR (02/03/2024 9:07 AM CDT) eGFR >90 >=60 mL/min/1. 73 m2 Comment: Interpretive Data Reference Interval Normal >/= 90 mL/min/1.73m2 Mildly decreased* 60 - 89 mL/min/1.73m2 Mildly to moderately decreased 45 - 59 mL/min/1.73m2 Moderately to severely decreased 30 - 44 mL/min/1.73m2 Severely decreased 15 - 29 mL/min/1.73m2 Kidney Failure < 15 mL/min/1.73m2 *Relative to young adult level Estimated glomerular filtration rate is determined by the 2020 CKD-EPI equation recommended by the National Kidney Foundation (A Unifying Approach to GFR Estimation: Recommendations of the NKF-ASK Task Force on Reassessing the Inclusion of Race in Diagnosing Kidney Disease, JASN 2020). The CKD-EPI equation should not be used for patients with unstable renal function and has not been validated in children and those over 70. Current interpretive data was last reviewed 2021. Blood 02/03/2024 9:07 AM CDT 02/03/2024 9:07 AM CDT us Colleen Hickey NP LAB BLOOD ORDERABLES Trang esquivel Result [facility] [address] Department [place] [address] * (ABNORMAL) Hemoglobin A1c (12/10/2023 2:06 PM CDT) [facility] Hgb A1C 5.7(H) <5.7 % of total Hgb AppscendKatherine Colon Comment: For someone without known diabetes, a hemoglobin A1c value between 5.7% and 6.4% is consistent with prediabetes and should be confirmed with a follow-up test. For someone with known diabetes, a value <7% indicates that their diabetes is well controlled. A1c targets should be individualized based on duration of diabetes, age, comorbid conditions, and other considerations. This assay result is consistent with an increased risk of diabetes. Currently, no consensus exists regarding use of hemoglobin A1c for diagnosis of diabetes for children. This test was performed on the Julia nallely c503 platform. Effective 07/06/23, a change in test platforms from the Pugh In Service Coordinator to the Julia nallely c503 may have shifted HbA1c results compared to historical results. Based on laboratory validation testing conducted at [facility], the Julia platform relative to the Pugh platform had an average increase in HbA1c value of < or = 0.3%. This difference is within accepted variability established by the National Glycohemoglobin Standardization Program. Note that not all individuals will have had a shift in their results and direct comparisons between historical and current results for testing conducted on different platforms is not recommended. Blood 12/10/2023 2:06 PM CDT 12/10/2023 2:08 PM CDT Narrative [facility] - 12/11/2023 6:12 AM CDT FASTING:YES FASTING: YES Santiago Garsia MD LAB BLOOD ORDERABLES F inal Result [facility] [address] [place] [address] * (ABNORMAL) Lipid panel (12/10/2023 2:06 PM CDT) [facility] Cholesterol 241(H) <200 mg/dL AppscendKatherine Colon HDL 41(L) > OR = 50 mg/dL AppscendKatherine Colon Triglycerides 175(H) <150 mg/dL Shiv Colon LDL 168(H) mg/dL (calc) Tag'ByBertrand david Colon Comment: Reference range: <100 Desirable range <100 mg/dL for primary prevention; <70 mg/dL for patients with CHD or diabetic patients with > or = 2 CHD risk factors. LDL-C is now calculated using the Carleen calculation, which is a validated novel method providing better accuracy than the Friedewald equation in the estimation of LDL-C. Ramesh VELASQUEZ et al. NANCY. 2013;310(53): 1313-8553 (http://education.WEbook/faq/TIA308) Chol/HDL ratio 5.9(H) <5.0 (calc) Tag'ByBertrand david Colon Non-HDL, (LDL+VLDL) 200(H) <130 mg/dL (calc) Tag'ByS david Colon Comment: For patients with diabetes plus 1 major ASCVD risk factor, treating to a non-HDL-C goal of <100 mg/dL (LDL-C of <70 mg/dL) is considered a therapeutic option. Blood 12/10/2023 2:06 PM CDT 12/10/2023 2:08 PM CDT Narrative [facility] - 12/11/2023 6:12 AM CDT FASTING:YES FASTING: YES Santiago Garsia MD LAB BLOOD ORDERABLES F inal Result [facility] [address] [place] [address] * Albumin Creatinine Ratio, Urine (06/15/2023 9:19 AM AVIONICS SYSTEMS TECHNICIAN) Albumin Ur 32.0 mg/L [facility] Comment: Interpretive Data No reference range established. Current interpretive data was last revised 2018. Creatinine Ur 164.5 mg/dL [facility] Comment: Interpretive Data No reference range established. Current interpretive data was last revised 2018. Albumin Creatinine Ratio, Ur 19 1 - 29 mg/g [facility] Urine 06/15/2023 9:19 AM AVIONICS SYSTEMS TECHNICIAN 06/15/2023 9:19 AM AVIONICS SYSTEMS TECHNICIAN Santiago Garsia MD LAB URINE ORDERABLES F inal Result [facility] [address] Department [place] [address] * Diagnostic Mammogram Bilateral W Matthew (06/28/2015 9:12 AM AVIONICS SYSTEMS TECHNICIAN) Anatomical Region Laterality Modality Breast Bilateral Mammography 06/28/2015 9:12 AM AVIONICS SYSTEMS TECHNICIAN Impressions 06/28/2015 12:20 PM AVIONICS SYSTEMS TECHNICIAN BI-RAD 4A SUSPICIOUS FOR MALIGNANCY 1. Low suspicion right breast 9 mm hypoechoic mass at 3 o'clock. Short-term follow-up imaging versus ultrasound-guided needle biopsy was discussed with the patient. In light of her family history of breast cancer (mother diagnosed at age 58), the patient prefers to undergo ultrasound guided needle biopsy, which is thus recommended. The ordering clinician's office will be contacted, and the patient will be notified of the date/time of her scheduled appointment/procedure. 2. No suspicious right axillary lymphadenopathy is evident by mammogram or ultrasound. 3. No suspicious mammographic or sonographic findings are evident at the bilateral superior breast areas of pain. Any further evaluation should be based on clinical findings. 4. No mammographic or sonographic evidence of malignancy involving the left breast. Stephen Melo md/:06/28/2015 12:19:29 Space Sciences Director: Hanane Rdz RT (R)(M), [facility] letter sent: MG & US Done-BX Needed Reading location: BI-RADS: 4a Suspicious abnormality - low suspicion for malignancy [EOD] Narrative 06/28/2015 12:20 PM AVIONICS SYSTEMS TECHNICIAN - [facility] BILAT DIAGNOSTIC 3D W/CAD BILATERAL DIGITAL DIAGNOSTIC MAMMOGRAM 3D/2D WITH CAD WITH MEDIOLATERAL OBLIQUE CRANIOCAUDAL: 06/28/2015 The study was acquired using full field digital technology and interpreted from soft copy. Current study was also evaluated with R2 CAD. 2D digital mammographic views, as well as 3D digital tomosynthesis were performed in the CC and MLO projections. CLINICAL: Patient comes in for bilateral pain. COMPARISONS: Comparison is made to exam dated: 01/24/2009 mammogram - [facility]. FINDINGS: Bilateral diagnostic mammogram: The breasts are composed of heterogeneously dense tissue, which may obscure small masses. A BB marker has been placed on the superior portion of each breast centered at approximately 12 o'clock, denoting the bilateral breast areas of pain. A second BB marker has also been placed on the upper outer left breast, denoting another region of pain. Only normal appearing breast tissue seen underlying all of the BB markers. Within the medial right breast at a posterior depth, there is a 1 cm asymmetry versus mass which appears gently lobulated, with partially circumscribed and partially obscured margins (CC frame 12). No definite correlate is identified on the MLO or true lateral views. This finding appears partially pliable with spot compression and likely persists on the rolled CC views, localizing to approximately 3 o'clock. Multiple round/punctate calcifications are scattered throughout both breasts. These are considered benign due to morphology, distribution, and bilaterality. No significant left breast mammographic findings or suspicious interval changes are identified. Bilateral breast ultrasound: Targeted sonographic evaluation of the left breast area of pain was performed, ranging from 10 to 1 o'clock, 11 - 12 cm from the nipple. Only normal appearing breast tissue was identified within this region. Focused sonographic evaluation of the right breast area of pain was also performed, ranging from 10 to 2 o'clock. Again, only normal appearing breast tissue was evident sonographically within this region. Targeted ultrasound of the medial right breast centered at 3 o'clock was performed by both the sonographic donor support technician and myself. At 3 o'clock, 7 cm from the nipple, there is a gently lobulated hypoechoic mass measuring 0.9 x 0.8 x 0.5 cm. This mass demonstrates no suspicious blood flow on color Doppler ultrasound. No posterior acoustic shadowing is noted. This probably corresponds with the aforementioned mammographically evident mass/CC view asymmetry, as evidenced by a standard CC view following placement of a BB marker over the sonographic finding. Sonographic evaluation of the right axilla demonstrates no suspicious lymphadenopathy. Procedure Note Provider, MD Lavon - 09/05/2020 - [facility] BILAT DIAGNOSTIC 3D W/CAD BILATERAL DIGITAL DIAGNOSTIC MAMMOGRAM 3D/2D WITH CAD WITH MEDIOLATERALOBLIQUE CRANIOCAUDAL: 06/28/2015 The study was acquired using full field digital technology and interpretedfrom soft copy. Current study was also evaluated with R2 CAD. 2D digital mammographic views, as well as 3D digital tomosynthesis were performed in the CC and MLO projections. CLINICAL: Patient comes in for bilateral pain. COMPARISONS: Comparison is made to exam dated: 01/24/2009 mammogram - [facility]. FINDINGS: Bilateral diagnostic mammogram: The breasts are composed ofheterogeneously dense tissue, which may obscure small masses. A BB marker has been placed on the superior portion of each breastcentered at approximately 12 o'clock, denoting the bilateral breast areas of pain. A second BB marker has also been placed on the upper outer left breast,denoting another region of pain. Only normal appearing breast tissue seenunderlying all of the BB markers. Within the medial right breast at a posterior depth, there is a 1 cmasymmetry versus mass which appears gently lobulated, with partially circumscribedand partially obscured margins (CC frame 12). No definite correlate isidentified on the MLO or true lateral views. This finding appears partially pliablewith spot compression and likely persists on the rolled CC views, localizing to approximately 3 o'clock. Multiple round/punctate calcifications are scattered throughout bothbreasts. These are considered benign due to morphology, distribution, andbilaterality. No significant left breast mammographic findings or suspicious interval changes are identified. Bilateral breast ultrasound: Targeted sonographic evaluation of the left breast area of pain was performed, ranging from 10 to 1 o'clock, 11 - 12cm from the nipple. Only normal appearing breast tissue was identifiedwithin this region. Focused sonographic evaluation of the right breast area of pain was also performed, ranging from 10 to 2 o'clock. Again, only normal appearingbreast tissue was evident sonographically within this region. Targeted ultrasound of the medial right breast centered at 3 o'clock was performed by both the sonographic donor support technician and myself. At 3 o'clock, 7cm from the nipple, there is a gently lobulated hypoechoic mass measuring 0.9x 0.8 x 0.5 cm. This mass demonstrates no suspicious blood flow on colorDoppler ultrasound. No posterior acoustic shadowing is noted. This probably corresponds with the aforementioned mammographically evident mass/CC view asymmetry, as evidenced by a standard CC view following placement of a BB marker over the sonographic finding. Sonographic evaluation of the right axilla demonstrates no suspicious lymphadenopathy. IMPRESSION: BI-RAD 4A SUSPICIOUS FOR MALIGNANCY 1. Low suspicion right breast 9 mm hypoechoic mass at 3 o'clock.Short-term follow-up imaging versus ultrasound-guided needle biopsy was discussedwith the patient. In light of her family history of breast cancer (motherdiagnosed at age 58), the patient prefers to undergo ultrasound guided needle biopsy,which is thus recommended. The ordering clinician's office will be contacted,and the patient will be notified of the date/time of her scheduled appointment/procedure. 2. No suspicious right axillary lymphadenopathy is evident by mammogramor ultrasound. 3. No suspicious mammographic or sonographic findings are evident at the bilateral superior breast areas of pain. Any further evaluation should be based on clinical findings. 4. No mammographic or sonographic evidence of malignancy involving theleft breast. Stephen Melo md/:06/28/2015 12:19:29 Space [employer] Director: Hanane Rdz RT (R)(Lucia), [facility] letter sent: MG & US Done-BX Needed Reading location: BI-RADS: 4a Suspicious abnormality - low suspicion for malignancy [EOD] us Jose Alejandro Dillan Hudson MD IMG MAMMO PROCEDURES Final Result from Last 3 Months or Most Recently Relevant to Health Maintenance Insurance [employer] [facility] CHOICE [facility] HMO/PPO Address: [address] [place] [address] [facility] CHOICE 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
[2025-02-06 15:27] VITALS: BP 148/68; PULSE 64; RESP 15; O2SAT 95
[2025-02-06] MEDS: HYDROcodone/acetaminophen (*CRX) 5-325 MG TABLET 1 TAB PO (15:28)
[2025-02-06] MEDS: ONDANSETRON INJ 4 MG/2 ML VIAL IV PUSH (15:29)
[2025-02-06 15:35] LABS: BEDSIDEPREGUCG Negative (Negative)
[2025-02-06 15:39] LABS: Hematocrit 38.9 % (37.0-47.0); Hemoglobin 13.0 g/dL (12.0-15.0); Immature Granulocyte Percent A 0.2 % (0-0.5); Lymphocytes Absolute Auto 1.71 K/mm3 (0.9-3.2); Mean Corpuscular HGB Conc 33.4 g/dl (32-36); Mean Corpuscular Hemoglobin 29.6 pg (26-34); Mean Corpuscular Volume 88.6 fl (80-100); Nucleated Red Blood Cells Absolute Auto 0.000 K/mm3 (0.0-0.012); Nucleated Red Blood Cells Perc 0.0 % (0.0-0.2); Platelet Count Result 228 k/mm3 (150-375); Red Blood Count 4.39 M/mm3 (4.2-5.4); White Blood Count 8.0 K/mm3 (4.5-10.0)
[2025-02-06 15:54] LABS: Alanine Aminotransferase 25 U/L (6-35); Albumin Level 4.2 g/dL (3.5-5.1); Alkaline Phosphatase 92 U/L (38-126); Anion Gap 6 mmol/L (4-12); Aspartate Amino Transferase 27 U/L (14-36); Bilirubin,Total 0.9 mg/dL (0.2-1.3); Blood Urea Nitrogen 16 mg/dL (7-17); Calcium 8.9 mg/dL (8.4-10.2); Carbon Dioxide 29 mmol/L (22-30); Chloride 105 mmol/L (98-107); Estimated CRCL calculation 84 ml/min; Estimated Glomerular Filt Rate > 60; Glucose 103 mg/dL (65-110); Potassium 4.1 mmol/L (3.4-5.0); Sodium 140 mmol/L (137-145); Total Protein 7.3 g/dL (6.3-8.2)
[2025-02-06 16:07] LABS: Add Urine Microscopic? YES; Appearance Urine Cloudy (Clear); Glucose Urine UA Negative (Negative); Leukocyte Esterase Ur Negative LEU/UL (Negative); Need Manual Microscopic Reviewed; Nitrate Urine Negative (Negative); Non Pathogenic Casts 0-2; Specific Grav Ur 1.029 (1.001-1.035)
[2025-02-06 16:36] VITALS: BP 163/89; PULSE 73; RESP 20; O2SAT 95
[2025-02-06] MEDS: SODIUM CHLORIDE 0.9% IV 1,000 ML 999 ML IV CONT (17:03)
[2025-02-06 17:56] VITALS: BP 147/88; PULSE 73; RESP 18; O2SAT 95
== END 2025-02-06 17:58 | disposition home or self-care (01) ==
PROVIDERS: Physician Assistant; Emergency Provider Emergency Medicine
DX: N39.0 Urinary tract infection, site not specified (principal); N20.0 Calculus of kidney; I10 Essential (primary) hypertension; F41.9 Anxiety disorder, unspecified
CPT/HCPCS: 36415; 74176; 80053; 81001; 81025; 83605; 85025; 87086; 96361; 96374; 99284; A9270; J2405; J7030